=== PATIENT | female | born 1970 | race Caucasian/White ===

== ENCOUNTER 2017-05-20 21:38 | Emergency (ER) | payer SELFPAY ==
--- NOTE | 2017-05-20 22:24 | ERPHSYRPT ---
- History of Present Illness Time Seen by Provider: 05/20/17 22:10 Source: patient Exam Limitations: clinical condition Patient Subjective Stated Complaint: pt states she has had an upper resp infection for approx 1 month and has been coughing up dark sputum. states she also has burning with urination and bumps in genital area. states she has had a new sexual partner within the past few months Triage Nursing Assessment: p;t alet and oriented, asnwers questions approp. pt ambultory with steady gait noted. respirations nonlabored with lungs cta. occasiona cough noted. no urine at this time. abd soft and nontender with bowel sounds present Physician History: PATIENT COMPLAINS OF PRODUCTIVE COUGH FOR 1 MONTH, SINUS PRESSURE WITH DRAINAGE AND URINARY FREQUENCY, URGENCY AND DYSURIA. HAS NO CHANGE IN COUGHING AFTER TAKING ANTIBIOTIC ZITHROMAX AND A SULFA DRUG. DENIES SORETHROAT, FEVER, OR DYSPNEA Timing/Duration: week(s) Severity: moderate Associated Symptoms: cough, other (URINARY SYMPTOMS) Allergies/Adverse Reactions: No Known Drug Allergies Allergy (Verified 05/20/17 22:08) Home Medications: Dextroamphetamine/Amphetamine [Dextroamp-Amphet ER 30 mg Cap] 30 mg PO 01/04/14 [History] Hx Tetanus, Diphtheria Vaccination/Date Given: Yes Hx Influenza Vaccination/Date Given: No Hx Pneumococcal Vaccination/Date Given: No Immunizations Up to Date: Yes - Review of Systems Constitutional: No Fever, No Chills Eyes: No Symptoms Ears, Nose, & Throat: No Symptoms, Sinus Drainage Respiratory: Cough, No Dyspnea Cardiac: No Chest Pain, No Edema, No Syncope Abdominal/Gastrointestinal: No Symptoms, No Abdominal Pain, No Nausea, No Vomiting, No Diarrhea Genitourinary Symptoms: Dysuria, Frequency Musculoskeletal: No Symptoms, No Back Pain, No Neck Pain Skin: No Rash Neurological: No Dizziness, No Focal Weakness, No Sensory Changes Psychological: No Symptoms Endocrine: No Symptoms All Other Systems: Reviewed and Negative - Past Medical History Pertinent Past Medical History: Yes Neurological History: No Pertinent History ENT History: No Pertinent History Cardiac History: High Cholesterol Respiratory History: No Pertinent History Endocrine Medical History: No Pertinent History Musculoskeletal History: No Pertinent History GI Medical History: No Pertinent History History: No Pertinent History Psycho-Social History: Attention Deficit Disorder Female Reproductive Disorders: No Pertinent History Other Medical History: ADHD - Past Surgical History Past Surgical History: Yes Neuro Surgical History: No Pertinent History Cardiac: No Pertinent History Respiratory: No Pertinent History Gastrointestinal: No Pertinent History Genitourinary: No Pertinent History Musculoskeletal: No Pertinent History Female Surgical History: Section, Hysterectomy Other Surgical History: Tummy Tuck - Social History Smoking Status: Current every day smoker How long have you smoked: 15 yrs Exposure to second hand smoke: No Drug Use: none Patient Lives Alone: No - Female History Hx Last Menstrual Period: hyster Hx Now: No - Nursing Vital Signs Nursing Vital Signs: Initial Vital Signs Temperature 98.1 F 05/20/17 21:57 Pulse Rate 87 05/20/17 21:57 Respiratory Rate 18 05/20/17 21:57 Blood Pressure 145/93 05/20/17 21:57 O2 Sat by Pulse Oximetry 98 05/20/17 21:57 Pain Scale Pain Intensity 3 - Physical Exam General Appearance: no apparent distress, alert Eye Exam: PERRL/EOMI, eyes nml inspection Ears, Nose, Throat Exam: normal ENT inspection, TMs normal, pharynx normal, moist mucous membranes, other (MINIMAL PERCUSSION TENDERNESS OVER MAXILLARY SINUSES) Neck Exam: normal inspection, non-tender, supple, full range of motion Respiratory Exam: normal breath sounds, lungs clear, No respiratory distress Cardiovascular Exam: regular rate/rhythm, normal heart sounds, normal peripheral pulses Gastrointestinal/Abdomen Exam: soft, normal bowel sounds, No tenderness, No mass Back Exam: normal inspection, normal range of motion, No CVA tenderness, No vertebral tenderness Extremity Exam: normal inspection, normal range of motion, pelvis stable Neurologic Exam: alert, oriented x 3, cooperative, normal mood/affect, nml cerebellar function, nml station & gait, sensation nml, No motor deficits Skin Exam: normal color, warm, dry, No rash Lymphatic Exam: No adenopathy SpO2 Interpretation: normal SpO2: 98 Oxygen Delivery: Room Air Ordered Tests: Active Orders 24 hr Category Date Time Status CULTURE,URINE Stat Lab 05/20/17 22:42 Received HCG,QUALITATIVE URINE Stat Lab 05/20/17 22:42 Completed UA W/ MICROSCOPIC Stat Lab 05/20/17 22:42 Completed Lab/Rad Data: Laboratory Results 05/20/17 05/20/17 Range/Units 22:42 22:42 Ur Collection Type VOID Urine Color YELLOW (YELLOW) Urine Appearance CLEAR (CLEAR) Urine pH 5.0 (5-6) Ur Specific [place] 1.025 (1.005-1.025) Urine Protein TRACE (Negative) Urine Ketones NEGATIVE (NEGATIVE) Urine Blood TRACE NON-HEM (0-5) Cecilio/ul Urine Nitrite NEGATIVE (NEGATIVE) Urine Bilirubin NEGATIVE (NEGATIVE) Urine Urobilinogen NORMAL (0-1) mg/dL Ur Leukocyte Esterase TRACE (NEGATIVE) Urine Microscopic RBC 2-5 (0-2) /HPF Urine Microscopic WBC 2-5 (0-5) /HPF Ur Epithelial Cells MODERATE (FEW) /HPF Calcium Oxalate Crystal 0-2 (NEGATIVE) /HPF Urine Bacteria FEW (NEGATIVE) /HPF Urine Mucus SLIGHT (NEGATIVE) /HPF Urine Culture Reflexed YES (NO) Urine Glucose NEGATIVE (NEGATIVE) mg/dL Urine HCG, Qual NEGATIVE (Negative) Specimen Received 05/20/17 2245 - Progress Counseled pt/family regarding: lab results, diagnosis, need for follow-up - Departure Time of Disposition: 00:20 Departure Disposition: Home Clinical Impression: ACUTE BRONCHITIS/SINUSITIS Condition: Stable Critical Care Time: No Additional Instructions: FINISH YOUR CURRENT ANTIBIOTIC SULFA DRUG IN 2 DAYS, THEN BEGIN ANTIBIOTIC AUGMENTIN 875MG TWICE DAILY FOR 10 DAYS. FOLLOWUP WITH YOUR PRIMARY CARE PHYSICIAN FOR YOUR SCHEDULED APPOINTMENT. TALK OVER THE COUNTER COUGH SYRUP EVERY 4 HOURS FOR COUGH NEEDED. TYLENOL OR MOTRIN FOR PAIN OR FEVER Prescriptions: Amox Tr/Potass Clav. 875 mg [Augmentin 875-125 Tablet] 875 mg PO BID #20 tablet
[2017-05-20 22:57] LABS: ADD URINE CULTURE? YES (NO); Bacteria FEW /HPF (NEGATIVE); Bilirubin NEGATIVE (NEGATIVE); Blood TRACE NON-HEM Ery/ul (0-5); COMPLETE URINE MICROSCOPIC? YES; Collection Type VOID; Epithelial Cells MODERATE /HPF (FEW); Glucose NEGATIVE (NEGATIVE); Leukocyte Esterase TRACE (NEGATIVE); Mucus SLIGHT /HPF (NEGATIVE)
[2017-05-20 22:58] LABS: CALCIUM OXALATE CRYSTALS 0-2 /HPF (NEGATIVE)
[2017-05-21 00:12] VITALS: BP 133/79; PULSE 92
[2017-05-21 00:17] VITALS: O2SAT 98
== END 2017-05-21 00:26 | disposition home or self-care (01) ==
LOC: ED 21:38
DX: J20.9 Acute bronchitis, unspecified (principal); J01.90 Acute sinusitis, unspecified
CPT/HCPCS: 81000; 84703; 87086; 99283

== ENCOUNTER 2017-05-31 08:23 | Emergency (ER) | payer SELFPAY ==
[2017-05-31] MEDS ORDERED: TORAdol 30 mg Injection IM ONE (08:51)
--- NOTE | 2017-05-31 08:57 | ERPHSYRPT ---
- History of Present Illness Time Seen by Provider: 05/31/17 08:52 Source: patient Exam Limitations: no limitations Patient Subjective Stated Complaint: pt states around 2044 last pm she fell. pt states she injured her left posterior leg. Triage Nursing Assessment: pt pink, warm, dry. bruise noted to left posterior and right posterior leg. bruise noted to right forearm. pt able to get undressed without difficulty and transfer to Er cot without difficulty. no deformities noted. Physician History: patient states that she tripped and left lateral thigh about an hour prior to arrival. Patient states pain is dull ache that is localized. There is no external signs of trauma or injuries. Patient states pain is worse with weight- bearing and movement. Patient did take Motrin 200 mg prior to arrival to the emergency department. Patient denies any numbness, tingling or weakness of distal extremities. Patient denies any other injuries. Occurred: this morning Reason for Fall: tripped Injuries/Pain Location: lower extremity (L lat thigh) Loss of Consciousness: no loss of consciousness Quality: aching Severity of Pain-Max: mild Severity of Pain-Current: mild Modifying Factors: Improves With: immobilization Associated Symptoms (Fall): denies symptoms Allergies/Adverse Reactions: No Known Drug Allergies Allergy (Verified 05/31/17 08:39) Home Medications: Dextroamphetamine/Amphetamine [Dextroamp-Amphet ER 30 mg Cap] 30 mg PO DAILY 12/13 [History] Hx Tetanus, Diphtheria Vaccination/Date Given: Yes (up to date) Hx Influenza Vaccination/Date Given: No Hx Pneumococcal Vaccination/Date Given: No Immunizations Up to Date: Yes - Review of Systems Constitutional: No Fever, No Chills Eyes: No Symptoms Ears, Nose, & Throat: No Symptoms Respiratory: No Cough, No Dyspnea Cardiac: No Chest Pain, No Edema, No Syncope Abdominal/Gastrointestinal: No Abdominal Pain, No Nausea, No Vomiting, No Diarrhea Genitourinary Symptoms: No Dysuria Musculoskeletal: Fall, Other (see HPI with the discharge he is okay. R will), No Back Pain, No Neck Pain Skin: No Rash Neurological: No Dizziness, No Focal Weakness, No Sensory Changes Psychological: No Symptoms Endocrine: No Symptoms All Other Systems: Reviewed and Negative - Past Medical History Pertinent Past Medical History: Yes Neurological History: No Pertinent History ENT History: No Pertinent History Cardiac History: Hypertension Respiratory History: No Pertinent History Endocrine Medical History: No Pertinent History Musculoskeletal History: No Pertinent History GI Medical History: No Pertinent History History: No Pertinent History Psycho-Social History: Attention Deficit Disorder Female Reproductive Disorders: No Pertinent History Other Medical History: ADHD - Past Surgical History Past Surgical History: Yes Neuro Surgical History: No Pertinent History Cardiac: No Pertinent History Respiratory: No Pertinent History Gastrointestinal: No Pertinent History Genitourinary: No Pertinent History Musculoskeletal: No Pertinent History Female Surgical History: Hysterectomy, Section Other Surgical History: Tummy Tuck - Social History Smoking Status: Current every day smoker How long have you smoked: 34 Exposure to second hand smoke: No Drug Use: none Patient Lives Alone: No - Female History Hx Last Menstrual Period: hyster Hx Now: No - Nursing Vital Signs Nursing Vital Signs: Initial Vital Signs Temperature 98.4 F 05/31/17 08:33 Pulse Rate 79 05/31/17 08:33 Respiratory Rate 20 05/31/17 08:33 Blood Pressure 154/84 05/31/17 08:33 O2 Sat by Pulse Oximetry 97 05/31/17 08:33 Pain Scale Pain Intensity 8 - Cambria Coma Score Best Eye Response (Rosanna): (4) open spontaneously Best Verbal Response (Cambria): (5) oriented Best Motor Response (Cambria): (6) obeys commands Rosanna Total: 15 - Physical Exam General Appearance: no apparent distress, alert Head Injury: no evidence of injury Eye Exam: PERRL/EOMI ENT Exam: airway nml Neck Exam: normal inspection, No tenderness Respiratory/Chest Exam: normal breath sounds, No chest tenderness, No respiratory distress Cardiovascular Exam: normal heart sounds, regular rate/rhythm Gastrointestinal Exam: soft, No tenderness, No distention, No guarding, No ecchymosis Back Exam: normal inspection, No vertebral tenderness Extremity Exam: normal inspection, normal range of motion, pelvis stable, other (there is mild tenderness to left lateral thigh, there are no signs of contusion or trauma to area), No deformities Neurologic Exam: alert, oriented x 3, cooperative, sensation nml, No motor deficits Skin Exam: normal color, warm, dry SpO2: 97 Oxygen Delivery: Room Air - Course Nursing assessment & vital signs reviewed: Yes Ordered Tests: Medication Summary Discontinued Medications Generic Name Dose Route Start Last Admin Trade Name Freq PRN Reason Stop Dose Admin Ketorolac Tromethamine 30 mg 05/31/17 08:51 Toradol 30 Mg Injection IM 05/31/17 08:52 STAT ONE - Progress Progress: improved Progress Note: 05/31/17 08:58 patient was given Toradol for discomfort Counseled pt/family regarding: diagnosis - Departure Time of Disposition: 08:58 Departure Disposition: Home Clinical Impression: Contusion of left leg Condition: Stable Critical Care Time: No Referrals: KD PEREZ [Primary Care Provider] - Instructions: Contusion Additional Instructions: ice to any sore areas. May take Motrin 800 mg every 8 hours with food for pain/swelling. return for worse pain, swelling, numbness, tingling or weakness to distal extremities
[2017-05-31] MEDS ORDERED: TORAdol 30 mg Injection ONE (08:58)
[2017-05-31 09:23] VITALS: BP 120/70; PULSE 84; O2SAT 96
== END 2017-05-31 09:20 | disposition home or self-care (01) ==
LOC: ED 08:23
DX: S80.12XA Contusion of left lower leg, initial encounter (principal); W01.0XXA Fall on same level from slipping, tripping and stumbling without subsequent striking against object, initial encounter; I10 Essential (primary) hypertension
CPT/HCPCS: 96372; 99284; J1885

== ENCOUNTER 2017-08-20 00:24 | Emergency (ER) | payer OTHER ==
[2012-04-21 13:43] VITALS: BP 130/85
--- NOTE | 2017-08-20 00:59 | ERPHSYRPT ---
- History of Present Illness Time Seen by Provider: 08/20/17 00:54 Source: patient, family Exam Limitations: no limitations Physician History: pt with increasing ST past few days and hurting to swallow but still able to swallow in ER - no menigismus positive tender bilateral nodes; no rash no fever reported maybe some flu like symptoms a few days ago which resolved - no N /V no cough or sobreath not hoarse Timing/Duration: gradual onset Severity: moderate ENT Location: throat Prearrival Treatment: over the counter meds Modifying Factors: Improves With: nothing Associated Symptoms: swollen glands, sore throat, No cough, No fever, No drooling, No difficulty swallowing, No voice change Allergies/Adverse Reactions: No Known Drug Allergies Allergy (Verified 05/31/17 08:39) Hx Tetanus, Diphtheria Vaccination/Date Given: Yes (up to date) Hx Influenza Vaccination/Date Given: No Hx Pneumococcal Vaccination/Date Given: No - Review of Systems Constitutional: No Fever, No Chills Eyes: No Symptoms Ears, Nose, & Throat: Throat Pain, Painful Swallowing Respiratory: No Cough, No Dyspnea Cardiac: No Chest Pain, No Edema, No Syncope Abdominal/Gastrointestinal: No Abdominal Pain, No Nausea, No Vomiting, No Diarrhea Genitourinary Symptoms: No Dysuria Musculoskeletal: No Back Pain, No Neck Pain Skin: No Rash Neurological: No Dizziness, No Focal Weakness, No Sensory Changes Psychological: No Symptoms Endocrine: No Symptoms All Other Systems: Reviewed and Negative - Past Medical History Pertinent Past Medical History: Yes Neurological History: No Pertinent History ENT History: No Pertinent History Cardiac History: Hypertension Respiratory History: No Pertinent History Endocrine Medical History: No Pertinent History Musculoskeletal History: No Pertinent History GI Medical History: No Pertinent History History: No Pertinent History Psycho-Social History: Attention Deficit Disorder Female Reproductive Disorders: No Pertinent History Other Medical History: ADHD - Past Surgical History Past Surgical History: Yes Neuro Surgical History: No Pertinent History Cardiac: No Pertinent History Respiratory: No Pertinent History Gastrointestinal: No Pertinent History Genitourinary: No Pertinent History Musculoskeletal: No Pertinent History Female Surgical History: Hysterectomy, Section Other Surgical History: Tummy Tuck - Social History Smoking Status: Current every day smoker How long have you smoked: 34 Exposure to second hand smoke: No Drug Use: none Patient Lives Alone: No - Physical Exam General Appearance: no apparent distress, alert Eye Exam: bilateral eye: PERRL, EOMI Ear Exam: bilateral ear: auricle normal, canal normal, TM normal Nasal Exam: normal inspection Throat Exam: moist mucus membranes, tonsillar exudate, No excessive drooling, No voice changes Neck Exam: non-tender, supple, trachea midline, lymphadenopathy (R), lymphadenopathy (L), No meningismus Cardiovascular/Respiratory Exam: normal breath sounds, regular rate/rhythm Abdominal Exam: non-tender, soft Neurologic Exam: alert, oriented x 3, sensation nml, No motor deficits Skin Exam: normal color, warm, dry SpO2 Interpretation: normal SpO2: 99 Oxygen Delivery: Room Air - Course Nursing assessment & vital signs reviewed: Yes - Progress Counseled pt/family regarding: diagnosis, need for follow-up - Departure Time of Disposition: 00:59 Departure Disposition: Home Clinical Impression: Strep pharyngitis Condition: Good Critical Care Time: No Referrals: KD PEREZ [Primary Care Provider] - Instructions: Sore Throat, Adult (DC), Strep Throat (DC), Viral Pharyngitis ( DC) Additional Instructions: followup with your Dr ; return meantime if not improving we are treating for strep due to the drainage we are seeing even without a test being required; return meantime if not able to keep swallowing or any trouble breathing or if feeling too sick Prescriptions: Amoxicillin/Potassium Clav [Augmentin 875 mg (Amox Tr-K Clv 875-125 mg)] 1 each PO BID #20 tablet
[2017-08-20] MEDS ORDERED: Augmentin 875-125 Tablet PO ONE (01:06)
[2017-08-20] MEDS ORDERED: DECADRON 10MG INJ. IM ONE (01:06)
[2017-08-20] MEDS ORDERED: Augmentin 875-125 Tablet ONE (01:09)
[2017-08-20] MEDS ORDERED: DECADRON 10MG INJ. ONE (01:10)
[2017-08-20 01:21] VITALS: BP 148/88; PULSE 78; O2SAT 98
== END 2017-08-20 01:21 | disposition home or self-care (01) ==
LOC: ED 00:24
DX: J02.0 Streptococcal pharyngitis (principal)
CPT/HCPCS: 96372; 99283; 99284; J1100; A9270-GY

== ENCOUNTER 2017-08-22 19:03 | Observation (INO) | payer OTHER ==
--- NOTE | 2017-08-22 19:57 | ERPHSYRPT ---
- History of Present Illness Time Seen by Provider: 08/22/17 19:50 Source: patient Exam Limitations: no limitations Patient Subjective Stated Complaint: severly fatigued, lightheaded, weak, bilateral earache Triage Nursing Assessment: Pt A&O x3, gait stable, lungs clear, pulses normal, skin cold and red, fingers almost purple in color, no pain, temp 97.4 and bp 134 /81. Does not appear to be in any distress. Stated that she was here on Sunday and was diagnosed with strep. Pt was given Augmentin. States now that she is severely weak and can barely get around. Physician History: Pt started c/o gen. weakness, shortness of breath 2 days ago. She was diagnosed with Strep throat and started on Augmentin 3 days ago, she started feeling SOB after started taking Augmentin. She denies chest pain, headaches, vomiting, diarrhea, fever, except nausea. Timing/Duration: day(s) (3) Activities at Onset: none Severity of Dyspnea-Max: moderate Severity of Dyspnea-Current: moderate Possible Cause: no prior episodes Modifying Factors: Improves With: activity Associated Symptoms: denies symptoms Allergies/Adverse Reactions: No Known Drug Allergies Allergy (Verified 08/20/17 01:02) Home Medications: Benazepril HCl 10 mg [Lotensin 10 MG] 1 tablet PO DAILY 08/22/17 [History] Levofloxacin [Levofloxacin 250MG Tablet] 1 tablet PO DAILY 08/22/17 [ History] Triamterene/Hydrochlorothiazid [Triamterene-Hctz 75-50 mg Tab] 1 tablet PO DAILY 08/22/17 [History] Hx Tetanus, Diphtheria Vaccination/Date Given: Yes (up to date) Hx Influenza Vaccination/Date Given: No Hx Pneumococcal Vaccination/Date Given: No - Review of Systems Constitutional: No Symptoms Ears, Nose, & Throat: Ear Pain, Throat Pain Respiratory: Dyspnea, No Cough Abdominal/Gastrointestinal: Nausea All Other Systems: Reviewed and Negative - Past Medical History Pertinent Past Medical History: Yes Neurological History: No Pertinent History ENT History: No Pertinent History Cardiac History: Hypertension Respiratory History: No Pertinent History Endocrine Medical History: No Pertinent History Musculoskeletal History: No Pertinent History GI Medical History: No Pertinent History History: No Pertinent History Psycho-Social History: Attention Deficit Disorder Female Reproductive Disorders: No Pertinent History Other Medical History: ADHD - Past Surgical History Past Surgical History: Yes Neuro Surgical History: No Pertinent History Cardiac: No Pertinent History Respiratory: No Pertinent History Gastrointestinal: No Pertinent History Genitourinary: No Pertinent History Musculoskeletal: No Pertinent History Female Surgical History: Hysterectomy, Section Other Surgical History: Tummy Tuck - Social History Smoking Status: Current every day smoker How long have you smoked: 34 Exposure to second hand smoke: No Drug Use: none Patient Lives Alone: No - Female History Hx Now: No - Nursing Vital Signs Nursing Vital Signs: Initial Vital Signs Temperature 97.4 F 08/22/17 19:19 Pulse Rate 98 H 08/22/17 19:19 Blood Pressure 134/81 08/22/17 19:19 O2 Sat by Pulse Oximetry 99 08/22/17 19:19 Pain Scale Pain Intensity 5 - Physical Exam General Appearance: no apparent distress Eye Exam: PERRL/EOMI, eyes nml inspection Ears, Nose, Throat Exam: hearing grossly normal, normal ENT inspection, normal pharynx Neck Exam: normal inspection, non-tender, supple, full range of motion, No carotid bruit, No JVD Respiratory Exam: normal breath sounds, lungs clear, airway intact, No chest tenderness, No respiratory distress Cardiovascular/Chest Exam: normal heart sounds, regular rate/rhythm, murmur, normal peripheral pulses, No edema, No JVD Abdominal/Gastrointestinal Exam: soft, normal bowel sounds, No tenderness, No distention, No mass, No guarding Extremity Exam: non-tender, normal inspection, No no calf tenderness, No no pedal edema Neurologic Exam: alert, oriented x 3, cooperative, normal mood/affect Skin Exam: normal color, warm, dry, No rash Lymphatic Exam: No adenopathy SpO2 Interpretation: normal SpO2: 99 Oxygen Delivery: Room Air - Course Nursing assessment & vital signs reviewed: Yes EKG Interpreted by Me: RATE, Sinus Rhythm, NORMAL AXIS, Non-specific ST Changes - Radiology Exams Chest X-ray Interpretation: Interpreted by me, Negative Ordered Tests: Active Orders 24 hr Category Date Time Status Manager Of Pharmacy STAT Care 08/22/17 19:50 Active EKG-ER Only STAT Care 08/22/17 19:49 Active CHEST 2 VIEWS (PA AND LAT) Stat Exams 08/22/17 19:50 Taken CBC W DIFF Stat Lab 02/21/18 21:10 Completed CMP Stat Lab 08/22/17 21:10 Completed MAGNESIUM Stat Lab 08/22/17 21:10 Completed Manual Differential NC Stat Lab 08/22/17 21:10 Completed NT PRO BNP Stat Lab 08/22/17 21:10 Completed TROPONIN Q3H Lab 08/22/17 21:10 Completed TROPONIN Q3H Lab 08/22/17 23:00 Ordered TROPONIN Q3H Lab 08/23/17 02:00 Ordered TROPONIN Q3H Lab 08/23/17 05:00 Ordered TROPONIN Q3H Lab 08/23/17 08:00 Ordered Lab/Rad Data: Laboratory Result Diagrams 08/22/17 21:10 08/22/17 21:10 Laboratory Results 08/22/17 08/22/17 08/22/17 Range/Units 21:10 21:10 21:10 WBC 16.5 H (4.0-10.5) K/mm3 RBC 6.74 H* (4.1-5.4) M/mm3 Hgb 19.4 H (12.0-16.0) gm/dl Hct 57.4 H (35-47) % MCV 85.2 (78-100) fl MCH 28.7 (26-32) pg MCHC 33.8 (32-36) g/dl RDW 14.7 H (11.5-14.0) % Plt Count 393 (150-450) K/mm3 MPV 10.7 H (6-9.5) fl Gran % 62.5 (36.0-66.0) % Lymphocytes % 28.1 (24.0-44.0) % Monocytes % 7.4 (0.0-12.0) % Eosinophils % 1.5 (0.00-5.0) % Basophils % 0.5 (0.0-0.4) % Basophils # 0.09 (0-0.4) Sodium 135 L (136-145) mEq/L Potassium 4.5 (3.5-5.1) mEq/L Chloride 99 (98-107) mEq/L Carbon Dioxide 26.4 (21-32) mEq/L Anion Gap 14.1 (5-15) MEQ/L BUN 24 H (9-20) mg/dL Creatinine 0.98 (0.55-1.30) mg/dl Estimated GFR > 60 ML/MIN Glucose 110 (70-110) MG/DL Calcium 9.8 (8.5-10.1) mg/dL Magnesium 2.0 (1.8-2.4) mg/dL Total Bilirubin 0.30 (0.2-1.0) mg/dL AST 31 (15-37) U/L ALT 82 H (12-78) U/L Alkaline Phosphatase 132 H (46-116) U/L Troponin I 0.021 (0.000-0.056) ng/ml NT-Pro-B Natriuret Pep 556 H (0-125) pg/ml Serum Total Protein 8.7 H (6.4-8.2) gm/dL Albumin 3.5 (3.4-5.0) g/dL Influenza Type A Ag (NEGATIVE) Influenza Type B Ag (NEGATIVE) RSV (PCR) (Negative) 08/22/17 Range/Units 20:25 WBC (4.0-10.5) K/mm3 RBC (4.1-5.4) M/mm3 Hgb (12.0-16.0) gm/dl Hct (35-47) % MCV (78-100) fl MCH (26-32) pg MCHC (32-36) g/dl RDW (11.5-14.0) % Plt Count (150-450) K/mm3 MPV (6-9.5) fl Gran % (36.0-66.0) % Lymphocytes % (24.0-44.0) % Monocytes % (0.0-12.0) % Eosinophils % (0.00-5.0) % Basophils % (0.0-0.4) % Basophils # (0-0.4) Sodium (136-145) mEq/L Potassium (3.5-5.1) mEq/L Chloride (98-107) mEq/L Carbon Dioxide (21-32) mEq/L Anion Gap (5-15) MEQ/L BUN (9-20) mg/dL Creatinine (0.55-1.30) mg/dl Estimated GFR ML/MIN Glucose (70-110) MG/DL Calcium (8.5-10.1) mg/dL Magnesium (1.8-2.4) mg/dL Total Bilirubin (0.2-1.0) mg/dL AST (15-37) U/L ALT (12-78) U/L Alkaline Phosphatase (46-116) U/L Troponin I (0.000-0.056) ng/ml NT-Pro-B Natriuret Pep (0-125) pg/ml Serum Total Protein (6.4-8.2) gm/dL Albumin (3.4-5.0) g/dL Influenza Type A Ag NEGATIVE (NEGATIVE) Influenza Type B Ag NEGATIVE (NEGATIVE) RSV (PCR) NEGATIVE (Negative) - Progress Progress: unchanged Air Movement: fair Progress Note: 08/22/17 22:52 Pt has been stable, no fever or distress, no chest pain, or cough, O2 sat: 99% on room air, stable. I called Dr Cool discussed our results and patient's condition with her, she agreed to admit patient for observation, pt and her were informed, they agreed. Discussed with .: Travon Will see patient in: hospital (observation) - Departure Time of Disposition: 22:55 Departure Disposition: Observation Clinical Impression: Erythrocytosis Dyspnea Qualifiers: Dyspnea type: other forms of dyspnea Qualified Code(s): R06.09 - Other forms of dyspnea Condition: Stable Critical Care Time: No Referrals: KD PEREZ [Primary Care Provider] -
[2017-08-22 21:08] LABS: INFLUENZA A NEGATIVE (NEGATIVE); INFLUENZA B NEGATIVE (NEGATIVE); RESPIRATORY SYNCTIAL VIRUS NEGATIVE (Negative)
[2017-08-22 21:25] LABS: BASOPHIL % 0.5 % (0.0-0.4); Basophil (Absolute #) 0.09 (0-0.4); Eosinophil % 1.5 % (0.00-5.0); Eosinophil (Absolute #) 0.24 (0-0.5); Granulocyte Absolute (ANC) 10.35 (1.4-6.9); Granulocytes % 62.5 % (36.0-66.0); Hematocrit 57.4 % (35-47); Hemoglobin 19.4 gm/dl (12.0-16.0); Lymphocyte (Absolute #) 4.64 (1.0-4.6); Lymphocytes % 28.1 % (24.0-44.0); Mean Cell Volume 85.2 fl (78-100); Mean Corpuscular Hgb Concent. 33.8 g/dl (32-36); Mean Platelet Volume 10.7 fl (6-9.5); Monocyte (Absolute #) 1.22 (0.0-1.3); Monocytes % 7.4 % (0.0-12.0); Platelet Count 393 K/mm3 (150-450); Red Cell Distribution Width 14.7 % (11.5-14.0); White Blood Count 16.5 K/mm3 (4.0-10.5)
[2017-08-22 21:47] LABS: Mean Corpuscular Hemoglobin 28.7 pg (26-32); Red Blood Count 6.74 M/mm3 (4.1-5.4)
[2017-08-22 21:57] LABS: ALBUMIN 3.5 g/dL (3.4-5.0); ALKALINE PHOSPHATASE 132 U/L (46-116); ANION GAP 14.1 MEQ/L (5-15); BLOOD UREA NITROGEN 24 mg/dL (9-20); CHLORIDE 99 mEq/L (98-107); Calcium 9.8 mg/dL (8.5-10.1); Carbon Dioxide 26.4 mEq/L (21-32); Creatinine 1 0.98 mg/dl (0.55-1.30); EST GLOMERULAR FILTRATION RATE > 60 ML/MIN; Glucose 110 MG/DL (70-110); NT PRO BNP 556 pg/ml (0-125); Potassium 4.5 mEq/L (3.5-5.1); SGOT/AST 31 U/L (15-37); SGPT/ALT 82 U/L (12-78); SODIUM 135 mEq/L (136-145); Total Protein 8.7 gm/dL (6.4-8.2)
[2017-08-22] MEDS ORDERED: DUONEB 0.5-3 MG/3 ml Neb IH PRN (22:56)
[2017-08-23 01:45] LABS: BAND 1 % (0.0-2.0); Basophil 2 % (0.0-1.0); Lymphocytes 24 % (24-44); Monocyte 8 % (0.0-12.0); Neutrophils 65 % (36.0-66.0); Platelet Estimate NORMAL (NORMAL); Total Cells Counted 100
[2017-08-23 01:46] LABS: ANISOCYTOSIS 1+; Poikilocytosis 1+
[2017-08-23 04:21] VITALS: PULSE 93
--- NOTE | 2017-08-23 08:38 | PCM.DCORD ---
- Discharge Discharge Date: 08/23/17 Prescriptions: Continue Triamterene/Hydrochlorothiazid [Triamterene-Hctz 75-50 mg Tab] 1 tablet PO DAILY Benazepril HCl 10 mg [Lotensin 10 MG] 1 tablet PO DAILY Discontinued Amoxicillin/Potassium Clav [Augmentin 875 mg (Amox Tr-K Clv 875-125 mg)] 1 each PO BID #20 tablet Levofloxacin [Levofloxacin 250MG Tablet] 1 tablet PO DAILY Additional Instructions: Follow up with Dr Young in 1 week increase fluids at home Follow up with: KD YOUNG [Primary Care Provider] - 1 Week
--- NOTE | 2017-08-23 08:46 | XRAY ---
Indication: Dyspnea. Comparison: March 16, 2012. PA/lateral chest again demonstrates normal heart and lungs with a few incidental calcified granulomas. Bony thorax intact with stable bilateral shoulder degenerative changes. No new/acute findings.
[2017-08-23 08:49] VITALS: BP 131/89; O2SAT 98
[2017-08-23 09:13] LABS: Granulocyte Absolute (ANC) 8.63 (1.4-6.9); Hematocrit 53.8 % (35-47); Hemoglobin 18.1 gm/dl (12.0-16.0); Mean Cell Volume 84.7 fl (78-100); Mean Corpuscular Hemoglobin 28.5 pg (26-32); Mean Corpuscular Hgb Concent. 33.6 g/dl (32-36); Mean Platelet Volume 10.1 fl (6-9.5); Platelet Count 468 K/mm3 (150-450); Red Blood Count 6.35 M/mm3 (4.1-5.4); Red Cell Distribution Width 13.9 % (11.5-14.0); White Blood Count 16.7 K/mm3 (4.0-10.5)
[2017-08-23 10:44] LABS: Eosinophil 3 % (0.00-3.0); Lymphocytes 47 % (24-44); Monocyte 7 % (0.0-12.0); Neutrophils 43 % (36.0-66.0); Total Cells Counted 100
[2017-08-23 10:45] LABS: Platelet Estimate NORMAL (NORMAL); Toxic Granulation 1+
--- NOTE | 2017-08-28 11:14 | SSS ---
DISCHARGE DIAGNOSES: 1) ABDOMINAL PAIN DUE TO AUGMENTIN. 2) POLYCYTHEMIA. HISTORY: The patient is a 46 year-old white female who was apparently seen in the emergency room briefly on 08/20/2017 with complaints of sore throat. The diagnosis was made of Strep throat. The patient was placed on Augmentin. No labs were done at that time, specifically no throat culture. The patient now complains of abdominal pain which we feel is likely secondary to the Augmentin. She was noted however to have an elevation in her red blood cell count of 6.64 with hemoglobin 19.4 and hematocrit 57.4. Her white blood cell count was also elevated at 16,500 with 1 band and 65 polys. The patient was also noted to have BUN elevated at 24, creatinine was 0.98. It was noted that her SGPT was slightly elevated at 82. Alkaline phosphatase was also at 132. ProBNP was 556. Influenza A, B and respiratory syncytial virus were all negative. The patient is also noted to be a smoker. PHYSICAL EXAMINATION: Currently reveals a well nourished, well developed 46 white female in no distress at the present time. Her vital signs showed a temperature 97.4F, pulse 98, respiratory rate 16, blood pressure 134/81. O2 saturations 99%. HEENT: Normocephalic, atraumatic. Pupils equal round reactive to light. Extraocular movements intact. Oropharynx is slightly dry. NECK: Supple without lymphadenopathy, thyromegaly or JVD. CHEST: Clear to auscultation with good air movement bilaterally. HEART: Regular rate and rhythm without murmurs, rubs or gallops. ABDOMEN: Soft, nontender, nondistended without hepatosplenomegaly or palpable masses. EXTREMITIES: Without clubbing, cyanosis or edema. NEUROLOGIC: The patient is alert and oriented x3. No focal deficits were noted. HOSPITAL COURSE: A patient with possible polycythemia vera. We have no labs for comparison although the patient is also a smoker and she is likely somewhat dehydrated. We will recheck her hemoglobin and allow her to go home presently as she is having no problems whatsoever otherwise at the present time. She will have follow up in the office in a week at which time we will recheck the blood count once again. We have asked her to stop smoking and increase her fluid intake. We will monitor her for possibility of polycythemia vera.
== END 2017-08-23 10:15 | disposition home or self-care (01) ==
LOC: ED 19:03 → ICU 08-23 00:12
PROVIDERS: ADMIT Internal Medicine; ATTEND Family Medicine
DX: R10.9 Unspecified abdominal pain (principal); T45.1X5A Adverse effect of antineoplastic and immunosuppressive drugs, initial encounter; D75.1 Secondary polycythemia; F17.200 Nicotine dependence, unspecified, uncomplicated; Z79.899 Other long term (current) drug therapy
CPT/HCPCS: 36415; 71046; 80053; 83735; 83880; 84484; 85025; 87631; 93005; 93041; 93268; 99285; G0378

== ENCOUNTER 2018-03-10 18:51 | Emergency (ER) | payer OTHER ==
[2018-03-10] MEDS ORDERED: MORPHINE SULFATE 2 MG INJ IV ONE (19:21)
[2018-03-10] MEDS ORDERED: Nitrostat 0.4 MG (ED) SL ONE ×2 (19:21→19:45)
[2018-03-10] MEDS ORDERED: BABY ASPIRIN 81 MG CHEW PO ONE (19:21)
--- NOTE | 2018-03-10 19:21 | ERPHSYRPT ---
- History of Present Illness Time Seen by Provider: 03/10/18 19:10 Historian: patient Exam Limitations: no limitations Patient Subjective Stated Complaint: Pt states "I have been having high blood pressure and chest pain. The chest pain started a couple hours ago." Triage Nursing Assessment: Pt alert and oriented X 3, skin pwd. PT ambulates with an upright steady gait, able to speak in clear full sentences. PT in no apparent respiratory distress, pt slightly anxious. Physician History: 47 y/o white female with h/o htn and recurrent cp presents with cp. cp began 2 hours ago. pt has no cardiac hx. pt is a smoker. pt is incarcerated in a prison and was not under any trauma or new stressors today Timing/Duration: hour(s) (2) Activities at Onset: none Location: substernal, central Chest Pain Radiation: no radiation Severity of Pain-Max: moderate Severity of Pain-Current: mild Modifying Factors: Improves With: nothing Associated Symptoms: No nausea, No vomiting, No palpitations, No abdominal pain , No shortness of breath, No cough, No hurts to breathe Prior Chest Pain/Cardiac Workup: no prior chest pain, no prior cardiac workup Nitro Today/Relief: no nitro taken today Aspirin Treatment Today: no aspirin today Allergies/Adverse Reactions: No Known Drug Allergies Allergy (Verified 08/20/17 01:02) Home Medications: No Reportable Medications [No Reported Medications] 03/10/18 [History] Hx Tetanus, Diphtheria Vaccination/Date Given: Yes Hx Influenza Vaccination/Date Given: No Hx Pneumococcal Vaccination/Date Given: No Immunizations Up to Date: Yes - Review of Systems Constitutional: No Symptoms, No Fever, No Chills Eyes: No Symptoms, No Discharge, No Eye Pain Ears, Nose, & Throat: No Symptoms, No Ear Pain, No Ear Discharge Respiratory: No Symptoms, No Cough, No Dyspnea, No Stridor, No Wheezing Cardiac: Chest Pain, No Palpitations, No Syncope Abdominal/Gastrointestinal: No Symptoms, No Abdominal Pain, No Nausea, No Vomiting, No Diarrhea Genitourinary Symptoms: No Symptoms, No Dysuria, No Hematuria Musculoskeletal: No Symptoms, No Back Pain, No Fall, No Injury Skin: No Symptoms Neurological: No Symptoms Psychological: No Symptoms Endocrine: No Symptoms Hematologic/Lymphatic: No Symptoms Immunological/Allergic: No Symptoms All Other Systems: Reviewed and Negative - Past Medical History Pertinent Past Medical History: Yes Neurological History: No Pertinent History ENT History: No Pertinent History Cardiac History: Hypertension Respiratory History: No Pertinent History Endocrine Medical History: No Pertinent History Musculoskeletal History: No Pertinent History GI Medical History: No Pertinent History History: No Pertinent History Psycho-Social History: No Pertinent History Female Reproductive Disorders: No Pertinent History Other Medical History: ADHD - Past Surgical History Past Surgical History: Yes Neuro Surgical History: No Pertinent History Cardiac: No Pertinent History Respiratory: No Pertinent History Gastrointestinal: No Pertinent History Genitourinary: No Pertinent History Musculoskeletal: No Pertinent History Female Surgical History: Hysterectomy, Section Other Surgical History: Tummy Tuck - Social History Smoking Status: Current every day smoker How long have you smoked: 35 years Exposure to second hand smoke: Yes Drug Use: methamphetamines Patient Lives Alone: No - Female History Hx Last Menstrual Period: complete hysterectomy Hx Now: No - Nursing Vital Signs Nursing Vital Signs: Initial Vital Signs Temperature 98.3 F 03/10/18 18:54 Pulse Rate 90 03/10/18 18:54 Respiratory Rate 18 03/10/18 18:54 Blood Pressure 142/102 03/10/18 18:54 O2 Sat by Pulse Oximetry 100 03/10/18 18:54 Pain Scale Pain Intensity 4 - Physical Exam General Appearance: mild distress, alert, anxiety Eye Exam: PERRL/EOMI, eyes nml inspection Ears, Nose, Throat Exam: normal ENT inspection, TMs normal, moist mucous membranes Neck Exam: normal inspection, non-tender, supple, full range of motion Respiratory Exam: normal breath sounds, chest tenderness, lungs clear, airway intact, No respiratory distress, No accessory muscle use, No rhonchi, No wheezing, No stridor Cardiovascular Exam: regular rate/rhythm, normal heart sounds, normal peripheral pulses Gastrointestinal/Abdomen Exam: soft, normal bowel sounds, No tenderness, No guarding, No rebound Pelvic Exam: not done Rectal Exam: not done Back Exam: normal inspection, normal range of motion, No CVA tenderness, No vertebral tenderness Extremity Exam: normal inspection, normal range of motion, pelvis stable Neurologic Exam: alert, oriented x 3, 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, 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 Skin Exam: normal color, warm, dry Lymphatic Exam: No adenopathy SpO2 Interpretation: normal SpO2: 100 Oxygen Delivery: Room Air - Course Nursing assessment & vital signs reviewed: Yes EKG Interpreted by Me: RATE (82), Sinus Rhythm, NORMAL AXIS, Non-specific ST Changes, Other (no change when compared to ekg dated 08/22/17) Ordered Tests: Active Orders 24 hr Category Date Time Status Lean Specialist STAT Care 03/10/18 19:22 Active EKG-ER Only STAT Care 03/10/18 19:21 Active IV Insertion STAT Care 03/10/18 19:21 Active CHEST 1 VIEW (PORTABLE) Stat Exams 03/10/18 19:22 Taken CHEST WITH CONTRAST [CT] Stat Exams 03/10/18 22:28 Taken CBC W DIFF Stat Lab 03/10/18 19:50 Completed CMP Stat Lab 03/10/18 19:50 Completed D-DIMER QUANTITATION Stat Lab 03/10/18 19:50 Completed PROTIME WITH INR Stat Lab 03/10/18 19:50 Completed TROPONIN Q3H Lab 03/10/18 19:58 Completed TROPONIN Q3H Lab 03/10/18 23:53 Received Medication Summary Discontinued Medications Generic Name Dose Route Start Last Admin Trade Name Evon PRN Reason Stop Dose Admin Aspirin 324 mg 03/10/18 19:21 03/10/18 19:47 Baby Aspirin 81 Mg Chew PO 03/10/18 19:22 324 mg STAT ONE Administration Aspirin Confirm 03/10/18 19:45 Baby Aspirin 81 Mg Chew Administered 03/10/18 19:46 Dose 324 mg .ROUTE .STK-MED ONE Morphine Sulfate 2 mg 03/10/18 19:21 03/10/18 19:48 Morphine Sulfate 2 Mg Inj IV 03/10/18 19:22 Not Given STAT ONE Nitroglycerin 0.4 mg 03/10/18 19:21 03/10/18 19:47 Nitrostat 0.4 Mg (Ed) SL 03/10/18 19:22 0.4 mg STAT ONE Administration Nitroglycerin Confirm 03/10/18 19:45 Nitrostat 0.4 Mg (Ed) Administered 03/10/18 19:46 Dose 0.4 mg SL .STK-MED ONE Lab/Rad Data: Laboratory Result Diagrams 03/10/18 19:50 03/10/18 19:50 Laboratory Results 03/10/18 03/10/18 03/10/18 Range/Units 19:58 19:50 19:50 WBC (4.0-10.5) K/mm3 RBC (4.1-5.4) M/mm3 Hgb (12.0-16.0) gm/dl Hct (35-47) % MCV (78-100) fl MCH (26-32) pg MCHC (32-36) g/dl RDW (11.5-14.0) % Plt Count (150-450) K/mm3 MPV (6-9.5) fl Gran % (36.0-66.0) % Eos # (Auto) (0-0.5) Absolute Lymphs (auto) (1.0-4.6) Absolute Monos (auto) (0.0-1.3) Lymphocytes % (24.0-44.0) % Monocytes % (0.0-12.0) % Eosinophils % (0.00-5.0) % Basophils % (0.0-0.4) % Absolute Granulocytes (1.4-6.9) Basophils # (0-0.4) PT 11.3 (9.95-12.35) SECONDS INR 0.97 (0.8-3.0) D-Dimer 634 H* (215-500) ng/mL Sodium 139 (137-145) mmol/L Potassium 4.3 (3.5-5.1) mmol/L Chloride 107 (98-107) mmol/L Carbon Dioxide 23 (22-30) mmol/L Anion Gap 13.5 (5-15) MEQ/L BUN 11 (7-17) mg/dL Creatinine 0.53 (0.52-1.04) mg/dL Estimated GFR > 60.0 ML/MIN Glucose 110 H (74-106) mg/dL Calcium 9.1 (8.4-10.2) mg/dL Total Bilirubin 0.30 (0.2-1.3) mg/dL AST 39 H (14-36) U/L ALT 66 H (0-35) U/L Alkaline Phosphatase 102 (38-126) U/L Troponin I < 0.012 (0.000-0.034) ng/mL Serum Total Protein 7.4 (6.3-8.2) g/dL Albumin 4.0 (3.5-5.0) g/dL 03/10/18 Range/Units 19:50 WBC 10.7 H (4.0-10.5) K/mm3 RBC 5.41 H (4.1-5.4) M/mm3 Hgb 15.8 (12.0-16.0) gm/dl Hct 46.2 (35-47) % MCV 85.4 (78-100) fl MCH 29.2 (26-32) pg MCHC 34.2 (32-36) g/dl RDW 13.7 (11.5-14.0) % Plt Count 325 (150-450) K/mm3 MPV 10.1 H (6-9.5) fl Gran % 60.5 (36.0-66.0) % Eos # (Auto) 0.15 (0-0.5) Absolute Lymphs (auto) 3.15 (1.0-4.6) Absolute Monos (auto) 0.88 (0.0-1.3) Lymphocytes % 29.3 (24.0-44.0) % Monocytes % 8.2 (0.0-12.0) % Eosinophils % 1.4 (0.00-5.0) % Basophils % 0.6 (0.0-0.4) % Absolute Granulocytes 6.50 (1.4-6.9) Basophils # 0.06 (0-0.4) PT (9.95-12.35) SECONDS INR (0.8-3.0) D-Dimer (215-500) ng/mL Sodium (137-145) mmol/L Potassium (3.5-5.1) mmol/L Chloride (98-107) mmol/L Carbon Dioxide (22-30) mmol/L Anion Gap (5-15) MEQ/L BUN (7-17) mg/dL Creatinine (0.52-1.04) mg/dL Estimated GFR ML/MIN Glucose (74-106) mg/dL Calcium (8.4-10.2) mg/dL Total Bilirubin (0.2-1.3) mg/dL AST (14-36) U/L ALT (0-35) U/L Alkaline Phosphatase (38-126) U/L Troponin I (0.000-0.034) ng/mL Serum Total Protein (6.3-8.2) g/dL Albumin (3.5-5.0) g/dL cta chest-no evidence of pulm emboli to the level of lobar pulm arteries. poor contrast bolus timing. - Progress Progress: improved Air Movement: good Progress Note: 03/11/18 00:06 pt states her cp has sig improved. pt denies soa. vss. room air o2 sats 100% Blood Culture(s) Obtained: No Antibiotics given: No Counseled pt/family regarding: lab results, diagnosis, need for follow-up, rad results - Departure Time of Disposition: 00:08 Departure Disposition: Correction/Detention Clinical Impression: Chest pain, Hypertension Condition: Good Critical Care Time: No Referrals: KD PEREZ [Primary Care Provider] - Additional Instructions: follow up with primary doctor for further management of your chest pain and high blood pressure.
[2018-03-10] MEDS ORDERED: BABY ASPIRIN 81 MG CHEW ONE (19:45)
[2018-03-10 20:19] LABS: BASOPHIL % 0.6 % (0.0-0.4); Basophil (Absolute #) 0.06 (0-0.4); Eosinophil % 1.4 % (0.00-5.0); Eosinophil (Absolute #) 0.15 (0-0.5); Granulocytes % 60.5 % (36.0-66.0); Hematocrit 46.2 % (35-47); Hemoglobin 15.8 gm/dl (12.0-16.0); Lymphocyte (Absolute #) 3.15 (1.0-4.6); Lymphocytes % 29.3 % (24.0-44.0); Mean Cell Volume 85.4 fl (78-100); Mean Corpuscular Hemoglobin 29.2 pg (26-32); Mean Corpuscular Hgb Concent. 34.2 g/dl (32-36); Mean Platelet Volume 10.1 fl (6-9.5); Monocyte (Absolute #) 0.88 (0.0-1.3); Monocytes % 8.2 % (0.0-12.0); Platelet Count 325 K/mm3 (150-450); Red Blood Count 5.41 M/mm3 (4.1-5.4); Red Cell Distribution Width 13.7 % (11.5-14.0); White Blood Count 10.7 K/mm3 (4.0-10.5)
[2018-03-10 20:23] LABS: ALKALINE PHOSPHATASE 102 U/L (38-126); ANION GAP 13.5 MEQ/L (5-15); BLOOD UREA NITROGEN 11 mg/dL (7-17); CHLORIDE 107 mmol/L (98-107); Calcium 9.1 mg/dL (8.4-10.2); Carbon Dioxide 23 mmol/L (22-30); Creatinine 1 0.53 mg/dL (0.52-1.04); Glucose 110 mg/dL (74-106); Potassium 4.3 mmol/L (3.5-5.1); SGOT/AST 39 U/L (14-36); SGPT/ALT 66 U/L (0-35); SODIUM 139 mmol/L (137-145); Total Protein 7.4 g/dL (6.3-8.2)
[2018-03-10 20:29] LABS: INR 0.97 (0.8-3.0)
[2018-03-10 22:28] VITALS: O2SAT 100
[2018-03-11 00:23] VITALS: BP 132/95; PULSE 102
[2018-03-11] MEDS ORDERED: TYLENOL 325 MG PO PRN (00:26)
[2018-03-11] MEDS ORDERED: TYLENOL 325 MG ONE (00:32)
--- NOTE | 2018-03-11 08:54 | XRAY ---
Indication: Chest pain and short of breath. Comparison: August 22, 2017. Portable chest again demonstrates normal heart, lungs, and bony thorax with incidental left upper lung calcified granuloma.
--- NOTE | 2018-03-11 08:54 | XRAY ---
Indication: Short of breath, chest pain, and elevated d-dimer. Multiple contiguous axial images obtained through the chest using 80 cc Isovue 370 contrast and PE protocol. Comparison: None There is satisfactory opacification of the pulmonary arteries to include the lobar and segmental branches. However mild respiration artifact limits evaluation of the distal lobar and segmental branches. No gross filling defect or pulmonary embolus. Heart is not enlarged. Aorta is normal in course and caliber. No pathologic mediastinal/hilar lymphadenopathy. Small hiatal hernia. Examination of the lung parenchyma demonstrates minimal bilateral dependent atelectasis and left upper lobe calcified granuloma. No suspicious pulmonary mass, infiltrate, or effusion. Bony thorax intact with minimal degenerative changes throughout the spine. Limited upper abdomen including adrenal glands unremarkable. Impression: 1. Pulmonary embolus evaluation limited by respiration artifact. No obvious pulmonary embolus. 2. Pulmonary calcified granuloma. No acute cardiopulmonary abnormalities. 3. Incidental hiatal hernia. Comment: Preliminary interpretation was made by [facility]. No critical discrepancy. CT DI 21.70
== END 2018-03-11 00:36 | disposition home or self-care (01) ==
LOC: EEVIPCON 18:51 → ED 18:51
DX: R07.9 Chest pain, unspecified (principal); I10 Essential (primary) hypertension
CPT/HCPCS: 36000; 36415; 71045; 71260; 76942; 80053; 84484; 85025; 85379; 85610; 93005; 93041; 99284; A9270-GY

== ENCOUNTER 2018-10-14 17:41 | Emergency (ER) | payer OTHER ==
--- NOTE | 2018-10-14 17:59 | ERPHSYRPT ---
- History of Present Illness Time Seen by Provider: 10/14/18 17:59 Source: patient Exam Limitations: no limitations Physician History: 48 y/o white female with a remote h/o genital herpes, presents with new outbreak. pt states same lesions. tender. pt also feels generally achy. pt also notices a different rash between pts breasts for one day. there is no pain but itches. pt has an appt with pcp tomorrow. Timing/Duration: day(s) (2) Quality: burning, itchy, painful Severity: mild Location: genitalia, other (chest between breasts) Possible Causes: other (herpes break out) Associated Symptoms: rash Allergies/Adverse Reactions: No Known Drug Allergies Allergy (Verified 10/14/18 18:02) Home Medications: Triamterene/Hydrochlorothiazid [Triamterene-Hctz 75-50 mg Tab] 1 each PO DAILY 10/14/18 [History] Hx Tetanus, Diphtheria Vaccination/Date Given: Yes Hx Influenza Vaccination/Date Given: No Hx Pneumococcal Vaccination/Date Given: No - Review of Systems Constitutional: No Symptoms Eyes: No Symptoms Ears, Nose, & Throat: No Symptoms Respiratory: No Symptoms Cardiac: No Symptoms Abdominal/Gastrointestinal: No Symptoms Genitourinary Symptoms: No Symptoms, Other (painful genital herpetic lesions) Musculoskeletal: No Symptoms Skin: Other (itchy rash between breasts) Neurological: No Symptoms Psychological: No Symptoms Endocrine: No Symptoms Hematologic/Lymphatic: No Symptoms Immunological/Allergic: No Symptoms All Other Systems: Reviewed and Negative - Past Medical History Pertinent Past Medical History: Yes Neurological History: No Pertinent History ENT History: No Pertinent History Cardiac History: Hypertension Respiratory History: No Pertinent History Endocrine Medical History: No Pertinent History Musculoskeletal History: No Pertinent History GI Medical History: No Pertinent History History: No Pertinent History Psycho-Social History: No Pertinent History Female Reproductive Disorders: No Pertinent History Other Medical History: ADHD - Past Surgical History Past Surgical History: Yes Neuro Surgical History: No Pertinent History Cardiac: No Pertinent History Respiratory: No Pertinent History Gastrointestinal: No Pertinent History Genitourinary: No Pertinent History Musculoskeletal: No Pertinent History Female Surgical History: Hysterectomy, Section Other Surgical History: Tummy Tuck - Social History Smoking Status: Current every day smoker How long have you smoked: 35 years Exposure to second hand smoke: Yes Drug Use: methamphetamines Patient Lives Alone: No - Nursing Vital Signs Nursing Vital Signs: Initial Vital Signs Temperature 98.5 F 10/14/18 17:51 Pulse Rate 81 10/14/18 17:51 Blood Pressure 155/86 10/14/18 17:51 O2 Sat by Pulse Oximetry 97 10/14/18 17:51 Pain Scale Pain Intensity 7 - Physical Exam General Appearance: mild distress, alert, anxiety Eye Exam: PERRL/EOMI Ears, Nose, Throat Exam: normal ENT inspection, moist mucous membranes Neck Exam: normal inspection, non-tender, supple, full range of motion Respiratory Exam: normal breath sounds, lungs clear, airway intact, No chest tenderness, No respiratory distress Gastrointestinal/Abdomen Exam: soft, No tenderness Pelvic Exam: other (external vaginal/labial area with multiple herpetic lesions) Rectal Exam: not done Back Exam: normal inspection, normal range of motion, No CVA tenderness, No vertebral tenderness Extremity Exam: normal inspection, normal range of motion, pelvis stable Neurologic Exam: alert, oriented x 3, 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 apply over the counter hydrocortisone, zinc oxide and topical antifungal as discussed. keep your skin hydrated well. keep your appointment with your primary doctor tomorrow. Prescriptions: Acyclovir 200 mg Cap [Zovirax 200 mg ] 400 mg PO TID #60 capsule
[2018-10-14 18:37] VITALS: O2SAT 96
[2018-10-14 19:16] VITALS: BP 136/87; PULSE 63
== END 2018-10-14 19:14 | disposition home or self-care (01) ==
LOC: ED 17:41
DX: A60.00 Herpesviral infection of urogenital system, unspecified (principal); L30.9 Dermatitis, unspecified
CPT/HCPCS: 99283

== ENCOUNTER 2018-10-15 11:12 | Emergency (ER) | payer OTHER ==
--- NOTE | 2018-10-15 11:26 | ERPHSYRPT ---
- History of Present Illness Time Seen by Provider: 10/15/18 11:26 Source: patient Exam Limitations: no limitations Physician History: 48 y/o white female returns to ED after being seen last pm for 2 types of rashes. one that itches between breasts and the other genital herpes. pt took the acyclovir which helped her genital herpes rash. however, pt did not follow directions on the tx plan for rash between breasts. she used only nystatin powder. she did not follow up with pcp as she stated last pm. her rash, not genital herpes, has become more generalized. she now thinks the dermatitis rash is due to a new laundry detergent. no soa or wheezing. she is anxious Timing/Duration: day(s) Quality: itchy Severity: moderate Location: generalized Possible Causes: other (laundry detergent) Associated Symptoms: denies symptoms Allergies/Adverse Reactions: No Known Drug Allergies Allergy (Verified 10/15/18 11:36) Home Medications: Triamterene/Hydrochlorothiazid [Triamterene-Hctz 75-50 mg Tab] 1 each PO DAILY 10/14/18 [History] Hx Tetanus, Diphtheria Vaccination/Date Given: Yes Hx Influenza Vaccination/Date Given: No Hx Pneumococcal Vaccination/Date Given: No - Review of Systems Constitutional: No Symptoms Eyes: No Symptoms Ears, Nose, & Throat: No Symptoms Respiratory: No Symptoms Cardiac: No Symptoms Abdominal/Gastrointestinal: No Symptoms Genitourinary Symptoms: No Symptoms Musculoskeletal: No Symptoms Skin: Rash (generalized) Neurological: No Symptoms Psychological: No Symptoms Endocrine: No Symptoms Hematologic/Lymphatic: No Symptoms Immunological/Allergic: No Symptoms All Other Systems: Reviewed and Negative - Past Medical History Pertinent Past Medical History: Yes Neurological History: No Pertinent History ENT History: No Pertinent History Cardiac History: Hypertension Respiratory History: No Pertinent History Endocrine Medical History: No Pertinent History Musculoskeletal History: No Pertinent History GI Medical History: No Pertinent History History: No Pertinent History Psycho-Social History: No Pertinent History Female Reproductive Disorders: No Pertinent History Other Medical History: ADHD - Past Surgical History Past Surgical History: Yes Neuro Surgical History: No Pertinent History Cardiac: No Pertinent History Respiratory: No Pertinent History Gastrointestinal: No Pertinent History Genitourinary: No Pertinent History Musculoskeletal: No Pertinent History Female Surgical History: Hysterectomy, Section Other Surgical History: Tummy Tuck - Social History Smoking Status: Current every day smoker How long have you smoked: 35 years Exposure to second hand smoke: Yes Drug Use: methamphetamines Patient Lives Alone: No - Nursing Vital Signs Nursing Vital Signs: Initial Vital Signs Temperature 98.0 F 10/15/18 11:29 Pulse Rate 94 H 10/15/18 11:29 Respiratory Rate 18 10/15/18 11:29 Blood Pressure 111/65 10/15/18 11:29 O2 Sat by Pulse Oximetry 96 10/15/18 11:29 Pain Scale Pain Intensity 8 - Physical Exam General Appearance: no apparent distress, alert, anxiety Eye Exam: PERRL/EOMI Ears, Nose, Throat Exam: normal ENT inspection, moist mucous membranes Neck Exam: normal inspection, non-tender, supple, full range of motion Respiratory Exam: normal breath sounds, lungs clear, airway intact, No chest tenderness, No respiratory distress, No accessory muscle use, No rhonchi, No wheezing, No stridor Cardiovascular Exam: regular rate/rhythm, normal heart sounds, normal peripheral pulses Gastrointestinal/Abdomen Exam: soft, normal bowel sounds, No tenderness Pelvic Exam: not done Rectal Exam: not done Back Exam: normal inspection, normal range of motion, No CVA tenderness, No vertebral tenderness Extremity Exam: normal inspection, normal range of motion, pelvis stable Neurologic Exam: alert, oriented x 3, 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 add benadryl orally as discussed. follow up with primary doctor for persistent symptoms. continue acyclovir as prescribed. Prescriptions: Prednisone 10 mg [Deltasone 10 mg] 10 mg PO TID #12 tablet Ranitidine HCl [Zantac] 150 mg PO BID #10 tablet
[2018-10-15] MEDS ORDERED: solu-MEDROL 125 MG IM ONE (12:07)
[2018-10-15] MEDS ORDERED: Pepcid 20 MG PO ONE (12:08)
[2018-10-15] MEDS ORDERED: BENADRYL 25 MG CAPSULE PO ONE (12:08)
[2018-10-15] MEDS ORDERED: solu-MEDROL 125 MG ONE (12:13)
[2018-10-15] MEDS ORDERED: BENADRYL 25 MG CAPSULE ONE (12:13)
[2018-10-15] MEDS ORDERED: Pepcid 20 MG ONE (12:13)
[2018-10-15 12:20] VITALS: BP 121/68; PULSE 87; O2SAT 98
== END 2018-10-15 12:26 | disposition home or self-care (01) ==
LOC: ED 11:12
DX: L25.9 Unspecified contact dermatitis, unspecified cause (principal); I10 Essential (primary) hypertension
CPT/HCPCS: 96372; 99284; J2930; A9270-GY

== ENCOUNTER 2019-04-22 20:15 | Emergency (ER) | payer OTHER ==
--- NOTE | 2019-04-22 20:36 | ERPHSYRPT ---
- History of Present Illness Time Seen by Provider: 04/22/19 20:36 Source: patient, family Exam Limitations: no limitations Patient Subjective Stated Complaint: pt states she has had a frequent cough at home and has chest congestion. states she feels like her chest is full of mucous ans she cant get it out. Triage Nursing Assessment: pt alert and oreinted, answers questions approp. pt ambulatory with steady gait noted. respirations nonlabored with exp wheezing noted throughout. frequent moist cough noted , skin warm and dry. Physician History: 48 y/o white female presents with cough and chest congestion for one week. denies fever, denies n/v. pt had a single episode diarrhea yesterday. grandchildren has been ill with similar sx. Timing/Duration: week(s) (1) Cough Quality/Degree: mild, dry cough Possible Cause: occasional episodes Modifying Factors: Improves With: coughing Associated Symptoms: cough Allergies/Adverse Reactions: No Known Drug Allergies Allergy (Verified 10/15/18 11:36) Home Medications: Bupropion HCl 150 mg Sr [Wellbutrin SR 150 MG] 150 mg PO DAILY 04/22/19 [ History] Dextroamphetamine/Amphetamine [Adderall 15 mg Tablet] 15 mg PO DAILY 04/22/19 [ History] Lisinopril [Zestril] 2.5 mg PO DAILY 04/22/19 [History] Hx Tetanus, Diphtheria Vaccination/Date Given: Yes Hx Influenza Vaccination/Date Given: No Hx Pneumococcal Vaccination/Date Given: No Immunizations Up to Date: Yes - Review of Systems Constitutional: No Symptoms Eyes: No Symptoms Ears, Nose, & Throat: No Symptoms Respiratory: Cough Cardiac: No Symptoms Abdominal/Gastrointestinal: No Symptoms Genitourinary Symptoms: No Symptoms Musculoskeletal: No Symptoms Skin: No Symptoms Neurological: No Symptoms Psychological: No Symptoms Endocrine: No Symptoms Hematologic/Lymphatic: No Symptoms Immunological/Allergic: No Symptoms All Other Systems: Reviewed and Negative - Past Medical History Pertinent Past Medical History: Yes Neurological History: No Pertinent History ENT History: No Pertinent History Cardiac History: Hypertension Respiratory History: No Pertinent History Endocrine Medical History: No Pertinent History Musculoskeletal History: No Pertinent History GI Medical History: No Pertinent History History: No Pertinent History Psycho-Social History: No Pertinent History Female Reproductive Disorders: No Pertinent History Other Medical History: ADHD - Past Surgical History Past Surgical History: Yes Neuro Surgical History: No Pertinent History Cardiac: No Pertinent History Respiratory: No Pertinent History Gastrointestinal: No Pertinent History Genitourinary: No Pertinent History Musculoskeletal: No Pertinent History Female Surgical History: Hysterectomy, Section Other Surgical History: Tummy Tuck - Social History Smoking Status: Current every day smoker How long have you smoked: 35 years Exposure to second hand smoke: Yes Drug Use: methamphetamines Patient Lives Alone: Yes - Female History Hx Last Menstrual Period: hyster Hx Now: No - Nursing Vital Signs Nursing Vital Signs: Initial Vital Signs Pulse Rate 88 04/22/19 20:16 Respiratory Rate 18 04/22/19 20:16 Blood Pressure 121/81 04/22/19 20:16 O2 Sat by Pulse Oximetry 98 04/22/19 20:16 Pain Scale Pain Intensity 7 - Physical Exam General Appearance: no apparent distress, alert, anxiety Eye Exam: PERRL/EOMI, eyes nml inspection Ears, Nose, Throat Exam: normal ENT inspection, moist mucous membranes Neck Exam: normal inspection, non-tender, supple, full range of motion Respiratory Exam: normal breath sounds, lungs clear, airway intact, No chest tenderness, No respiratory distress Cardiovascular Exam: regular rate/rhythm, normal heart sounds, normal peripheral pulses Gastrointestinal/Abdomen Exam: soft, normal bowel sounds, No tenderness Pelvic Exam: not done Rectal Exam: not done Back Exam: normal inspection, normal range of motion, No CVA tenderness, No vertebral tenderness Extremity Exam: normal inspection, normal range of motion, pelvis stable Neurologic Exam: alert, oriented x 3, 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, 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 Skin Exam: normal color, warm, dry Lymphatic Exam: No adenopathy SpO2 Interpretation: normal SpO2: 98 O2 Delivery: Room Air - Course Nursing assessment & vital signs reviewed: Yes EKG Interpreted by Me: RATE (81), Sinus Rhythm, NORMAL AXIS, NORMAL INTERVALS, NORMAL QRS, Other (no change from comparison ekg dated 03/10/18) Ordered Tests: Active Orders 24 hr Category Date Time Status CHEST 1 VIEW (PORTABLE) Stat Exams 04/22/19 21:34 Taken Medication Summary Discontinued Medications Generic Name Dose Route Start Last Admin Trade Name Freq PRN Reason Stop Dose Admin Benzonatate 200 mg 04/22/19 21:57 04/22/19 22:43 Tessalon Perles 100 Mg PO 04/22/19 21:58 200 mg STAT ONE Administration Ceftriaxone Sodium 1,000 mg 04/22/19 21:56 04/22/19 22:12 Rocephin 1000 Mg Inj IM 04/22/19 21:57 1,000 mg STAT ONE Administration Methylprednisolone Sodium Succinate 125 mg 04/22/19 21:56 04/22/19 22:13 Solu-Medrol 125 Mg IM 04/22/19 21:57 125 mg STAT ONE Administration - Progress Progress: improved Air Movement: good Progress Note: 04/22/19 22:46 cxr-no acute process. Blood Culture(s) Obtained: No Antibiotics given: Yes Counseled pt/family regarding: diagnosis, need for follow-up, rad results - Departure Departure Disposition: Home Clinical Impression: Bronchitis Condition: Stable Critical Care Time: No Referrals: ESTUARDO FLORES MD [Primary Care Provider] - Additional Instructions: drink plenty of fluids. follow up with primary doctor for further management Prescriptions: Azithromycin 250 mg [Zithromax 250 MG TABLET] 250 mg PO ZPACK #6 tablet Benzonatate [Tessalon Perle] 200 mg PO TID #12 capsule Prednisone 10 mg [Deltasone 10 mg] 10 mg PO TID #12 tablet
[2019-04-22] MEDS ORDERED: solu-MEDROL 125 MG IM ONE (21:56)
[2019-04-22] MEDS ORDERED: Rocephin 1000 MG INJ IM ONE (21:56)
[2019-04-22] MEDS ORDERED: Tessalon Perles 100 MG PO ONE (21:57)
[2019-04-22 23:17] VITALS: BP 128/74; PULSE 84; O2SAT 99
--- NOTE | 2019-04-23 09:22 | XRAY ---
Indication: Cough. Comparison: March 10, 2018. Portable chest demonstrates new left base infiltrate with stable incidental left lung calcified granuloma. Remaining heart and lungs unremarkable. 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 Comment: Infiltrate not reported on preliminary interpretation by the ER clinician. Telephone report given to Dr. Weinberg in the ER at 0917 hrs. on April 23, 2019.
== END 2019-04-22 23:17 | disposition home or self-care (01) ==
LOC: ED 20:15
DX: J40 Bronchitis, not specified as acute or chronic (principal); R91.8 Other nonspecific abnormal finding of lung field
CPT/HCPCS: 71045; 96372; 99284; J0696; J2930; A9270-GY

== ENCOUNTER 2019-06-06 09:51 | Emergency (ER) | payer OTHER ==
[2019-06-06] MEDS ORDERED: Rocephin 1000 MG INJ IM ONE (10:41)
--- NOTE | 2019-06-06 10:41 | ERPHSYRPT ---
- History of Present Illness Time Seen by Provider: 06/06/19 10:20 Source: patient Exam Limitations: no limitations Patient Subjective Stated Complaint: Pt states "I have horrible congestion. I was on zithromax a month ago and when I finished it I still was not feeling well so I went to the [facility] and they gave me prednisone and I am on my last dose and I still do not feel well. I am supposed to get tomorrow night and I need to feel better. I was told I have bronchitis at [facility]." Triage Nursing Assessment: Pt presented alert and oriented X 3, skin pwd Pt ambulates with an upright steady gait, able to speak in clear full sentences. Pt in no apparent respiratory distress. Pt has intermittant cough, wheezes noted bilat. Physician History: 48 y/o white female presents with 1 month h/o first nasal congestion and then progressed into cough and chest congestion. pt received a z pack one month ago. pts sx did not improve much. this week she went to [facility] and received steroids and a ventolin inhaler. pt states she is not soa, she does not have cp or abd pain. pt states the steroid helps but she only takes one daily because they make her angry and hateful. pt states she was dx with early pneumonia a month ago. she states she does not want another cxr and does not need another inhaler. she also only has one more steroid dose but does not want any more rx. pt continues to smoke. Timing/Duration: other (one month) Cough Quality/Degree: dry cough Possible Cause: occasional episodes Modifying Factors: Improves With: albuterol inhaler, coughing Associated Symptoms: denies symptoms, cough, nasal congestion Allergies/Adverse Reactions: No Known Drug Allergies Allergy (Verified 10/15/18 11:36) Home Medications: Bupropion HCl 150 mg Sr [Wellbutrin SR 150 MG] 150 mg PO DAILY 04/22/19 [ History] Dextroamphetamine/Amphetamine [Adderall 15 mg Tablet] 15 mg PO DAILY 04/22/19 [ History] Lisinopril [Zestril] 2.5 mg PO DAILY 04/22/19 [History] Hx Tetanus, Diphtheria Vaccination/Date Given: Yes Hx Influenza Vaccination/Date Given: No Hx Pneumococcal Vaccination/Date Given: No Immunizations Up to Date: Yes - Review of Systems Constitutional: No Symptoms Eyes: No Symptoms Ears, Nose, & Throat: Nose Congestion, Sinus Drainage, Hoarse Respiratory: Cough Cardiac: No Symptoms Abdominal/Gastrointestinal: No Symptoms Genitourinary Symptoms: No Symptoms Musculoskeletal: No Symptoms Skin: No Symptoms Neurological: No Symptoms Psychological: No Symptoms Endocrine: No Symptoms Hematologic/Lymphatic: No Symptoms Immunological/Allergic: No Symptoms All Other Systems: Reviewed and Negative - Past Medical History Pertinent Past Medical History: Yes Neurological History: No Pertinent History ENT History: No Pertinent History Cardiac History: Hypertension Respiratory History: No Pertinent History Endocrine Medical History: No Pertinent History Musculoskeletal History: No Pertinent History GI Medical History: No Pertinent History History: No Pertinent History Psycho-Social History: No Pertinent History Female Reproductive Disorders: No Pertinent History Other Medical History: ADHD - Past Surgical History Past Surgical History: Yes Neuro Surgical History: No Pertinent History Cardiac: No Pertinent History Respiratory: No Pertinent History Gastrointestinal: No Pertinent History Genitourinary: No Pertinent History Musculoskeletal: No Pertinent History Female Surgical History: Hysterectomy, Section Other Surgical History: Tummy Tuck - Social History Smoking Status: Current every day smoker How long have you smoked: years Exposure to second hand smoke: Yes Drug Use: methamphetamines Patient Lives Alone: No - Female History Hx Last Menstrual Period: hysterectomy Hx Now: No - Nursing Vital Signs Nursing Vital Signs: Initial Vital Signs Temperature 98.0 F 06/06/19 09:58 Pulse Rate 88 06/06/19 09:58 Respiratory Rate 20 06/06/19 09:58 Blood Pressure 159/103 06/06/19 09:58 O2 Sat by Pulse Oximetry 99 06/06/19 09:58 Pain Scale Pain Intensity 0 - Physical Exam General Appearance: mild distress, alert, anxiety Eye Exam: PERRL/EOMI, eyes nml inspection Ears, Nose, Throat Exam: normal ENT inspection, moist mucous membranes Neck Exam: normal inspection, non-tender, supple, full range of motion Respiratory Exam: airway intact, wheezing (mild bilat), No chest tenderness, No respiratory distress Cardiovascular Exam: regular rate/rhythm, normal heart sounds, normal peripheral pulses Gastrointestinal/Abdomen Exam: soft, normal bowel sounds, No tenderness Pelvic Exam: not done Rectal Exam: not done Back Exam: normal inspection, normal range of motion, No CVA tenderness, No vertebral tenderness Extremity Exam: normal inspection, normal range of motion, pelvis stable Neurologic Exam: alert, oriented x 3, 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, 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 Skin Exam: normal color, warm, dry Lymphatic Exam: No adenopathy SpO2 Interpretation: normal SpO2: 99 O2 Delivery: Room Air - Course Nursing assessment & vital signs reviewed: Yes Ordered Tests: Medication Summary Generic Name Dose Route Start Last Admin Trade Name Freq PRN Reason Stop Dose Admin Hydrocodone Bitart/Acetaminophen 10 ml 06/06/19 10:43 Hydrocodone-Acetamin 2.5-108/5 Ml Solution PO 06/06/19 10:44 STAT STA Discontinued Medications Generic Name Dose Route Start Last Admin Trade Name Freq PRN Reason Stop Dose Admin Ceftriaxone Sodium 1,000 mg 06/06/19 10:41 Rocephin 1000 Mg Inj IM 06/06/19 10:42 STAT ONE Methylprednisolone Sodium Succinate 125 mg 06/06/19 10:42 Solu-Medrol 125 Mg IM 06/06/19 10:43 STAT ONE - Progress Progress: improved Air Movement: good Blood Culture(s) Obtained: No Antibiotics given: Yes Counseled pt/family regarding: diagnosis, need for follow-up - Departure Departure Disposition: Home Clinical Impression: Bronchitis Condition: Stable Critical Care Time: No Referrals: INDER KERR [Primary Care Provider] - Additional Instructions: drink plenty of fluids. stop smoking and avoid exposure to smoke. follow up with primary doctor for further management. continue your inhaler and your steroids as prescribed. Prescriptions: Cefdinir 300 mg PO BID 7 Days #14 capsule Hydrocodone Bit/Acetaminophen [Hydrocodone-Acetaminophen Soln] 10 ml PO Q6H # 120 ml
[2019-06-06] MEDS ORDERED: HYDROCODONE-ACETAMIN 2.5-108/5 ML SOLUTION PO STA (10:43)
[2019-06-06] MEDS ORDERED: PROVENTIL 2.5 MG/3 ML NEB IH ONE ×2 (10:53→11:30)
[2019-06-06] MEDS ORDERED: solu-MEDROL 125 MG ONE (11:10)
[2019-06-06] MEDS ORDERED: Rocephin 1000 MG INJ ONE (11:10)
[2019-06-06] MEDS ORDERED: XYLOCAINE 1% HCL 20 ML MDV ONE (11:10)
[2019-06-06] MEDS ORDERED: HYDROCODONE-ACETAMIN 2.5-108/5 ML SOLUTION ONE (11:10)
[2019-06-06] MEDS: solu-MEDROL 125 MG IM ONE (11:15)
[2019-06-06 11:26] VITALS: BP 128/78
[2019-06-06 11:37] VITALS: PULSE 97; O2SAT 98
== END 2019-06-06 11:51 | disposition home or self-care (01) ==
LOC: ED 09:51
DX: J40 Bronchitis, not specified as acute or chronic (principal); R09.81 Nasal congestion; R09.89 Other specified symptoms and signs involving the circulatory and respiratory systems; R05 Cough; I10 Essential (primary) hypertension
CPT/HCPCS: 94640; 96372; 99284; J0696; J2930; J7609; A9270-GY

== ENCOUNTER 2021-06-08 13:36 | Emergency (ER) | payer OTHER ==
[2021-06-08] MEDS ORDERED: TORAdol 30 mg Injection ONE (14:45)
[2021-06-08] MEDS ORDERED: BENADRYL 50 MG/ML ONE (14:45)
[2021-06-08] MEDS ORDERED: TYLENOL 325 MG ONE (14:46)
[2021-06-08] MEDS ORDERED: Reglan 10 MG/2 ML ONE (14:46)
[2021-06-08] MEDS: TYLENOL 325 MG PO ONE (14:49)
[2021-06-08] MEDS: Reglan 10 MG/2 ML IM ONE (14:50)
[2021-06-08] MEDS: TORAdol 30 mg Injection IM ONE (14:52)
[2021-06-08] MEDS: BENADRYL 50 MG/ML IM ONE (14:53)
[2021-06-08 14:57] VITALS: BP 149/82; PULSE 69; O2SAT 98
--- NOTE | 2021-06-08 15:28 | ERPHSYRPT ---
- History of Present Illness Time Seen by Provider: 06/08/21 13:56 Source: patient Exam Limitations: no limitations Patient Subjective Stated Complaint: " My blood pressure has been up and I have a headache on the left side." Triage Nursing Assessment: Pt presents to ER with complaints of constant throbbing headache in left side of head along with noted hypertension that began yesterday. States been going through a lot of stress regarding her daughter and grandchildren, which she believes is causing her BP issues and headache. Pt is alert and oriented x3. Respirations are easy and unlabored. Pt skin is pink, warm, and dry. Complaints of intermittent blurred vision but pupils are PERRL. Pt complains of nausea but denies vomiting or diarrhea. Physician History: 50 years old female with history of hypertension presented in the ER with chief complaint of left frontotemporal headache since yesterday, continuous, sharp throbbing, moderate to severe intensity, partial relief with taking [id number] medication. She also noticed that her blood pressure was elevated in 150s yesterday. Patient reports she is going through a lot of stress which is adding to her symptoms. Denies any focal numbness tingling or weakness. Does report occasional episode of blurry vision when headache gets worse. No diplopia. No difficulty speech or facial droop. Does not report having history of migraines. Does report having nausea but no vomiting. Timing/Duration: yesterday, constant, sudden, improved Quality: sharpness, throbbing Head Pain Location: frontal, temporal Severity of Pain-Max: severe Severity of Pain-Current: moderate Recent Head Trauma: no recent headache/trauma Associated Symptoms: nausea/vomiting, No confusion, No dizziness, No facial pain, No fever/chills, No flushing, No light-headedness, No loss of consciousness, No nasal congestion, No nasal drainage, No neck pain, No numbness in legs/feet, No rash, No sweating, No scotoma, No seizures, No sinus infection, No sensitive to light, No speech problems, No stiff neck, No trouble walking, No weakness Previous symptoms: no prior history Allergies/Adverse Reactions: No Known Drug Allergies Allergy (Verified 06/08/21 13:54) Home Medications: lisinopriL [Zestril] 2.5 mg PO BID 04/22/19 [History] Dextroamphetamine/Amphetamine [Adderall Xr 30 mg Capsule] 30 mg PO DAILY 06/08/21 [History] Hx Tetanus, Diphtheria Vaccination/Date Given: Yes Hx Influenza Vaccination/Date Given: No Hx Pneumococcal Vaccination/Date Given: No Immunizations Up to Date: Yes Travel Risk - International Travel Have you traveled outside of the country in past 3 weeks: No - Coronavirus Screening Are you exhibiting any of the following symptoms?: No - Vaccine Status Have you recieved a Covid-19 vaccination: Yes 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 - Vaccination Dates Date of 2cond Vaccination (if applicable): unknown - Review of Systems Constitutional: No Symptoms Eyes: No Symptoms Ears, Nose, & Throat: No Symptoms Respiratory: No Symptoms Cardiac: No Symptoms Abdominal/Gastrointestinal: Nausea Genitourinary Symptoms: No Symptoms Musculoskeletal: No Symptoms Skin: No Symptoms Neurological: Headache Psychological: No Symptoms Endocrine: No Symptoms Hematologic/Lymphatic: No Symptoms Immunological/Allergic: No Symptoms - Past Medical History Pertinent Past Medical History: Yes Neurological History: No Pertinent History ENT History: No Pertinent History Cardiac History: Hypertension Respiratory History: No Pertinent History Endocrine Medical History: No Pertinent History Musculoskeletal History: Other GI Medical History: No Pertinent History History: No Pertinent History Psycho-Social History: Attention Deficit Disorder, Depression Female Reproductive Disorders: No Pertinent History Other Medical History: , HYSTERECTOMY, TUMMY TUCK - Past Surgical History Past Surgical History: Yes Neuro Surgical History: No Pertinent History Cardiac: No Pertinent History Respiratory: No Pertinent History Gastrointestinal: No Pertinent History Genitourinary: No Pertinent History Musculoskeletal: No Pertinent History Female Surgical History: Hysterectomy, Section Other Surgical History: Tummy Tuck - Social History Smoking Status: Current every day smoker How long have you smoked: years Exposure to second hand smoke: No Drug Use: methamphetamines Patient Lives Alone: Yes - Female History Hx Now: No - Nursing Vital Signs Nursing Vital Signs: Initial Vital Signs Temperature 97 F 06/08/21 13:45 Pulse Rate 70 06/08/21 13:45 Respiratory Rate 18 06/08/21 13:45 Blood Pressure 146/83 06/08/21 13:45 O2 Sat by Pulse Oximetry 99 06/08/21 13:45 Pain Scale Pain Intensity 8 - Physical Exam General Appearance: no apparent distress, alert Eye Exam: PERRL/EOMI, eyes nml inspection Ears, Nose, Throat Exam: normal ENT inspection, pharynx normal Neck Exam: normal inspection, non-tender, supple, full range of motion Respiratory Exam: normal breath sounds, lungs clear Cardiovascular Exam: regular rate/rhythm, normal heart sounds Gastrointestinal/Abdominal Exam: soft, normal bowel sounds, No tenderness Back Exam: normal inspection, normal range of motion Extremity Exam: normal inspection, normal range of motion Mental Status Exam: alert, oriented x 3, 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 Exam: normal hearing, normal speech, PERRL, No abnormal eye position, No facial asymmetry Coordination/Gait Exam: normal finger to nose, normal gait, normal cerebellar function, negative Romberg's sign Motor/Sensory Exam: no motor deficit, no sensory deficit, no pronator drift, negative Babinski's sign DTR Exam: bicep (R): 2+, bicep (L): 2+, knee (R): 2+, knee (L): 2+ Skin Exam: normal color SpO2 Interpretation: normal SpO2: 98 O2 Delivery: Room Air Ordered Tests: Medication Summary Discontinued Medications Generic Name Dose Route Start Last Admin Trade Name Evon PRN Reason Stop Dose Admin Acetaminophen 975 mg 06/08/21 14:42 06/08/21 14:49 Acetaminophen 325 Mg Tablet PO 06/08/21 14:43 975 mg STAT ONE Administration Acetaminophen Confirm 06/08/21 14:46 Acetaminophen 325 Mg Tablet Administered 06/08/21 14:47 Dose 975 mg .ROUTE .STK-MED ONE Diphenhydramine HCl 25 mg 06/08/21 14:42 06/08/21 14:53 Diphenhydramine Hcl 50 Mg/Ml Vial IM 06/08/21 14:43 25 mg STAT ONE Administration Diphenhydramine HCl Confirm 06/08/21 14:45 Diphenhydramine Hcl 50 Mg/Ml Vial Administered 06/08/21 14:46 Dose 50 mg .ROUTE .STK-MED ONE Ketorolac Tromethamine 30 mg 06/08/21 14:42 06/08/21 14:52 Ketorolac Tromethamine 30 Mg/Ml Inj IM 06/08/21 14:43 30 mg STAT ONE Administration Ketorolac Tromethamine Confirm 06/08/21 14:45 Ketorolac Tromethamine 30 Mg/Ml Inj Administered 06/08/21 14:46 Dose 30 mg .ROUTE .STK-MED ONE Metoclopramide HCl 10 mg 06/08/21 14:42 06/08/21 14:50 Metoclopramide Hcl 10 Mg/2 Ml Vial IM 06/08/21 14:43 10 mg STAT ONE Administration Metoclopramide HCl Confirm 06/08/21 14:46 Metoclopramide Hcl 10 Mg/2 Ml Vial Administered 06/08/21 14:47 Dose 10 mg .ROUTE .STK-MED ONE - Progress Progress: improved Air Movement: good Progress Note: 06/08/21 15:28 Patient has nonfocal neuro exam. Blood pressure in 140s. Offered CT head which she refused. Given migraine cocktail, on reevaluation her headache is almost completely resolved. Recommended outpatient follow-up. Discussed signs symptoms of worsening needing return to ER which she seems understanding. Blood Culture(s) Obtained: No Antibiotics given: No Counseled pt/family regarding: diagnosis, need for follow-up - Departure Departure Disposition: Home Clinical Impression: Headache, Hypertension Condition: Stable Critical Care Time: No Referrals: KRISTEN CARLSON [Primary Care Provider] - Follow up/PCP as directed (1-2 days for reevaluation) Instructions: Headache, Adult (DC) Additional Instructions: Take low-salt diet. Take Tylenol/ibuprofen as needed for headache. Follow-up with your primary care for reevaluation. Return to ER for intractable headache, numbness tingling weakness, double vision, facial asymmetry, difficulty speech etc. Monitor your blood pressure regularly, keep a log and follow-up with PCP to see if needs any medication changes.
== END 2021-06-08 15:34 | disposition home or self-care (01) ==
LOC: ED 13:36
DX: R50.9 Fever, unspecified (principal); I10 Essential (primary) hypertension; R11.0 Nausea; H53.8 Other visual disturbances; Z72.0 Tobacco use
CPT/HCPCS: 96372; 99284; J1200; J1885; A9270-GY

== ENCOUNTER 2021-11-25 02:21 | Emergency (ER) | payer OTHER ==
[2021-11-25] MEDS ORDERED: TORAdol 30 mg Injection IM ONE (02:34)
[2021-11-25] MEDS ORDERED: TORAdol 30 mg Injection ONE (02:38)
--- NOTE | 2021-11-25 02:41 | ERPHSYRPT ---
- History of Present Illness Time Seen by Provider: 11/25/21 02:40 Source: patient Physician History: Patient is a 51-year-old female presents to emergency department for evaluation of low back pain. 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 Patient was lifting a sink 2 days ago and believes she injured her back. Patient awoke early this morning with back soreness. Patient checked her temperature at home and states it was 99.8. Patient presented to our ED today concerned with fever and back pain. Pain described as an ache that is localized. No radiation. No blunt trauma. No change in bowel bladder function. No saddle anesthesia. No recent back procedure. Patient's temperature in our ED today was 98.3. Patient has no urinary symptomology. No frequency no urgency. No suprapubic pain. Patient is otherwise healthy. She voices no other complaints or concerns at this time. Timing/Duration: today Method of Injury: lifting Quality: dull Back Pain Location: lumbar spine Severity of Pain-Max: moderate Severity of Pain-Current: mild Modifying Factors: Improves With: movement Associated Symptoms: chills, lower back pain, muscle spasms, No loss of bowel control, No nausea, No vomiting, No weakness, No sensory/motor loss, No tingling in legs/feet Previous symptoms: no prior history Allergies/Adverse Reactions: No Known Drug Allergies Allergy (Verified 11/25/21 02:39) Home Medications: lisinopriL [Zestril] 2.5 mg PO BID 04/22/19 [History] Dextroamphetamine/Amphetamine [Adderall Xr 30 mg Capsule] 30 mg PO DAILY 06/08/21 [History] Hx Tetanus, Diphtheria Vaccination/Date Given: Yes Hx Influenza Vaccination/Date Given: No Hx Pneumococcal Vaccination/Date Given: No Travel Risk - Vaccine Status Have you recieved a Covid-19 vaccination: Yes Client Support Analyst: Moderna - Vaccination Dates Date of 2cond Vaccination (if applicable): unknown - Review of Systems Constitutional: No Symptoms, No Fever, No Chills Eyes: No Symptoms Ears, Nose, & Throat: No Symptoms Respiratory: No Symptoms, No Cough, No Dyspnea Cardiac: No Symptoms, No Chest Pain, No Edema, No Syncope Abdominal/Gastrointestinal: No Symptoms, No Abdominal Pain, No Nausea, No Vomiting, No Diarrhea Genitourinary Symptoms: No Symptoms, No Dysuria Musculoskeletal: No Symptoms, No Back Pain, No Neck Pain Skin: No Symptoms, No Rash Neurological: No Symptoms, No Dizziness, No Focal Weakness, No Sensory Changes Psychological: No Symptoms Endocrine: No Symptoms Hematologic/Lymphatic: No Symptoms Immunological/Allergic: No Symptoms All Other Systems: Reviewed and Negative - Past Medical History Pertinent Past Medical History: Yes Neurological History: No Pertinent History ENT History: No Pertinent History Cardiac History: Hypertension Respiratory History: No Pertinent History Endocrine Medical History: No Pertinent History Musculoskeletal History: Other GI Medical History: No Pertinent History History: No Pertinent History Psycho-Social History: Attention Deficit Disorder, Depression Female Reproductive Disorders: No Pertinent History Other Medical History: , HYSTERECTOMY, TUMMY TUCK - Past Surgical History Past Surgical History: Yes Neuro Surgical History: No Pertinent History Cardiac: No Pertinent History Respiratory: No Pertinent History Gastrointestinal: No Pertinent History Genitourinary: No Pertinent History Musculoskeletal: No Pertinent History Female Surgical History: Hysterectomy, Section Other Surgical History: Tummy Tuck - Social History Smoking Status: Current every day smoker How long have you smoked: years Exposure to second hand smoke: No Drug Use: methamphetamines Patient Lives Alone: Yes - Nursing Vital Signs Nursing Vital Signs: Initial Vital Signs Temperature 98.3 F 11/25/21 02:31 Pulse Rate 95 H 11/25/21 02:31 Respiratory Rate 16 11/25/21 02:31 Blood Pressure 171/98 11/25/21 02:31 O2 Sat by Pulse Oximetry 99 11/25/21 02:31 Pain Scale Pain Intensity [Back] 7 Pain Intensity 7 - Physical Exam General Appearance: no apparent distress, alert Eye Exam: PERRL/EOMI, eyes nml inspection Ears, Nose, Throat Exam: normal ENT inspection, TMs normal, pharynx normal Neck Exam: normal inspection, non-tender, supple, full range of motion, No meningismus, No midline tenderness Respiratory Exam: normal breath sounds, lungs clear, airway intact, No respiratory distress Cardiovascular Exam: regular rate/rhythm, normal heart sounds, normal peripheral pulses Gastrointestinal Exam: soft, normal bowel sounds, No tenderness, No mass Back Exam: normal inspection, normal range of motion, muscle spasm (Bilateral lumbar paraspinal musculature spasms. 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 tested, normal mood/affect, nml station & gait, sensation nml, No motor deficits Skin Exam: normal color, warm, dry, No rash Lymphatic Exam: No adenopathy SpO2 Interpretation: normal SpO2: 98 O2 Delivery: Room Air - Course Nursing assessment & vital signs reviewed: Yes Ordered Tests: Active Orders 24 hr Category Date Time Status HCG,QUALITATIVE URINE Stat Lab 11/25/21 02:41 Ordered UA W/RFX CULTURE Stat Lab 11/25/21 02:41 Ordered Medication Summary Discontinued Medications Generic Name Dose Route Start Last Admin Trade Name Evon PRN Reason Stop Dose Admin Ketorolac Tromethamine 30 mg 11/25/21 02:34 11/25/21 02:42 Ketorolac Tromethamine 30 Mg/Ml Inj IM 11/25/21 02:35 30 mg STAT ONE Administration Ketorolac Tromethamine Confirm 11/25/21 02:38 Ketorolac Tromethamine 30 Mg/Ml Inj Administered 11/25/21 02:39 Dose 30 mg .ROUTE .STK-MED ONE Lab/Rad Data: Laboratory Results 11/25/21 11/25/21 Range/Units 02:41 02:41 Urinalys Dipstick Clnc MAIN LAB Urine Color YELLOW (YELLOW) Urine Appearance CLEAR (CLEAR) Urine pH 7.0 (5-6) Ur Specific [place] 1.025 (1.005-1.025) POC Urine Protein Conf NEGATIVE (Negative) Urine Ketones NEGATIVE (NEGATIVE) Urine Nitrite NEGATIVE (NEGATIVE) Urine Bilirubin NEGATIVE (NEGATIVE) Urine Urobilinogen 1 (0-1) mg/dL Urine Leukocytes NEGATIVE (NEGATIVE) Urine WBC (Auto) NONE (0-5) /HPF Urine RBC (Auto) NONE (0-2) /HPF U Epithel Cells (Auto) RARE (FEW) /HPF Urine Bacteria (Auto) NONE (NEGATIVE) /HPF Urine RBC NEGATIVE (0-5) Cecilio/ul Urine Mucus (Auto) SLIGHT (NEGATIVE) /HPF Ur Culture Indicated? NO Urine Glucose NEGATIVE (NEGATIVE) mg/dL Urine HCG, Qual NEGATIVE (Negative) - Progress Progress: improved Progress Note: Patient reassessed. Pain improved. UA negative for UTI. hCG negative. No midline pain. No indication for imaging studies at this time. Will discharge home. Patient agrees to follow-up with primary care doctor within 48 hours for evaluation. Portions of this note were created with voice recognition technology. There may be grammatical, spelling, punctuation or sound alike errors 11/25/21 02:59 Counseled pt/family regarding: lab results, diagnosis, need for follow-up - Departure Departure Disposition: Home Clinical Impression: Lumbosacral strain Condition: Stable Critical Care Time: No Referrals: KRISTEN CARLSON [Primary Care Provider] - Follow up/PCP as directed Additional Instructions: Discharge/Care Plan EDIL SCHREIBER was seen on 11/25/21 in the Emergency Room. The patient was counseled regarding Diagnosis,Lab results, Imaging studies, need for follow up and when to return to the Emergency Room. Prescriptions given: Discharge Note I have spoken with the patient and/or caregivers. I have explained the patient's condition, diagnosis and treatment plan based on the information available to me at this time. I have answered the patient's and/or caregiver's questions and addressed any concerns. The patient and/or caregivers have as good understanding of the patient's diagnosis, condition and treatment plan as can be expected at this point. The vital signs have been stable. The patient's condition is stable and appropriate for discharge from the emergency department. The patient will pursue further outpatient evaluation with the primary care physician or other designated or consulting physician as outlined in the discharge instructions. The patient and/or caregivers are agreeable to this plan of care and follow-up instructions have been explained in detail. The patient and/or caregivers have received these instruction. The patient/and or caregivers are aware that any significant change in condition or worsening of symptoms should prompt an immediate return to this or the closest emergency department or call 911.
[2021-11-25 02:53] LABS: Epithelial Cells RARE /HPF (FEW); Mucus SLIGHT /HPF (NEGATIVE)
[2021-11-25 02:54] LABS: Appearance CLEAR (CLEAR); Bilirubin NEGATIVE (NEGATIVE); Dipstick done @ ? MAIN LAB; Glucose NEGATIVE (NEGATIVE); Ketones NEGATIVE (NEGATIVE); Nitrite NEGATIVE (NEGATIVE); Protein,Urine Dip NEGATIVE (Negative); RBC NEGATIVE Ery/ul (0-5); Specific Gravity 1.025 (1.005-1.025); Urobilinogen 1 mg/dL (0-1)
[2021-11-25 02:55] LABS: Urine Cultured Indicated? NO
[2021-11-25 03:08] VITALS: BP 153/83; PULSE 88; O2SAT 96
== END 2021-11-25 03:08 | disposition home or self-care (01) ==
LOC: ED 02:21
DX: S39.012A Strain of muscle, fascia and tendon of lower back, initial encounter (principal); X50.0XXA Overexertion from strenuous movement or load, initial encounter; I10 Essential (primary) hypertension; Z72.0 Tobacco use; Z79.899 Other long term (current) drug therapy
CPT/HCPCS: 81015; 84703; 96372; 99284; J1885

== ENCOUNTER 2022-01-19 19:14 | Emergency (ER) | payer OTHER ==
[2022-01-19] MEDS ORDERED: BENADRYL 50 MG/ML IV ONE (19:54)
[2022-01-19] MEDS ORDERED: Reglan 10 MG/2 ML IV ONE (19:54)
[2022-01-19] MEDS ORDERED: TYLENOL 325 MG PO ONE (19:54)
[2022-01-19] MEDS ORDERED: TORAdol 30 mg Injection IV ONE (19:54)
[2022-01-19] MEDS ORDERED: Sodium Chloride 0.9% 1000 ML 1,000 ML IV STA (19:54)
--- NOTE | 2022-01-19 20:23 | ERPHSYRPT ---
- History of Present Illness Time Seen by Provider: 01/19/22 19:54 Source: patient Exam Limitations: no limitations Patient Subjective Stated Complaint: pt states she has had a headache for the last 4 days. today pain is in the rt frontal and occipatal areas Triage Nursing Assessment: pt alert and oriented, answers questions approp. pt ambulatory with steady gait noted. respirations nonlabored. skin warm and dry. pupils equal and reactive. bilat upper and lower ext strength equal and wnl. Physician History: 51 years old female presented to the ER with 4-day history of headache initially on the left side and now having on the right side of the occipital area without associated nausea vomiting, blurry vision, numbness tingling weakness. No difficulty movements of neck. No fever or chills reported. Patient has been staying outside in hot and is concerned about getting overheated. She has been taking [id number] medication along with meloxicam with no significant relief. Timing/Duration: day(s) (4), gradual onset, worse Quality: sharpness Head Pain Location: frontal, parietal Severity of Pain-Max: severe Severity of Pain-Current: severe Recent Head Trauma: no recent headache/trauma Modifying Factors: Worsens With: noise, position Associated Symptoms: denies symptoms Previous symptoms: same symptoms as today Allergies/Adverse Reactions: No Known Drug Allergies Allergy (Verified 01/19/22 19:46) Home Medications: lisinopriL [Zestril] 5 mg PO BID 04/22/19 [History] Dextroamphetamine/Amphetamine [Adderall Xr 30 mg Capsule] 30 mg PO DAILY 06/08/21 [History] Lamotrigine [Lamotrigine ER] 25 mg PO DAILY 01/19/22 [History] Meloxicam 15 mg [Meloxicam 15 MG] 15 mg PO DAILY 01/19/22 [History] Hx Tetanus, Diphtheria Vaccination/Date Given: Yes Hx Influenza Vaccination/Date Given: Yes Hx Pneumococcal Vaccination/Date Given: No Immunizations Up to Date: Yes Travel Risk - International Travel Have you traveled outside of the country in past 3 weeks: No - Coronavirus Screening Are you exhibiting any of the following symptoms?: No Close contact with a COVID-19 positive Pt in past 14-21 Days: No - Vaccine Status Have you recieved a Covid-19 vaccination: Yes Yeast Culture Developer: Moderna - Vaccination Dates Date of 2cond Vaccination (if applicable): 2020 - Review of Systems Constitutional: No Symptoms Eyes: No Symptoms Ears, Nose, & Throat: No Symptoms Respiratory: No Symptoms Cardiac: No Symptoms Abdominal/Gastrointestinal: No Symptoms Genitourinary Symptoms: No Symptoms Musculoskeletal: No Symptoms Skin: No Symptoms Neurological: Headache Psychological: No Symptoms Endocrine: No Symptoms Hematologic/Lymphatic: No Symptoms Immunological/Allergic: No Symptoms - Past Medical History Pertinent Past Medical History: Yes Neurological History: No Pertinent History ENT History: No Pertinent History Cardiac History: Hypertension Respiratory History: No Pertinent History Endocrine Medical History: No Pertinent History Musculoskeletal History: Other GI Medical History: No Pertinent History History: No Pertinent History Psycho-Social History: Attention Deficit Disorder, Depression Female Reproductive Disorders: No Pertinent History Other Medical History: , HYSTERECTOMY, TUMMY TUCK - Past Surgical History Past Surgical History: Yes Neuro Surgical History: No Pertinent History Cardiac: No Pertinent History Respiratory: No Pertinent History Gastrointestinal: No Pertinent History Genitourinary: No Pertinent History Musculoskeletal: No Pertinent History Female Surgical History: Hysterectomy, Section Other Surgical History: Tummy Tuck - Social History Smoking Status: Current every day smoker How long have you smoked: 25yrs Exposure to second hand smoke: No Drug Use: methamphetamines Patient Lives Alone: Yes - Nursing Vital Signs Nursing Vital Signs: Initial Vital Signs Temperature 97.2 F 01/19/22 19:35 Pulse Rate 69 01/19/22 19:35 Respiratory Rate 16 01/19/22 19:35 Blood Pressure 178/105 01/19/22 19:35 O2 Sat by Pulse Oximetry 98 01/19/22 19:35 Pain Scale Pain Intensity 7 - Physical Exam General Appearance: no apparent distress, alert Eye Exam: PERRL/EOMI, eyes nml inspection Ears, Nose, Throat Exam: normal ENT inspection, TMs normal, pharynx normal, moist mucous membranes Neck Exam: normal inspection, non-tender, supple, full range of motion Respiratory Exam: normal breath sounds, lungs clear Cardiovascular Exam: regular rate/rhythm, normal heart sounds Gastrointestinal/Abdominal Exam: soft, normal bowel sounds, No tenderness Back Exam: normal inspection, normal range of motion, No CVA tenderness Extremity Exam: normal inspection, normal range of motion Mental Status Exam: alert, oriented x 3, 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 Exam: normal hearing, normal speech, PERRL Coordination/Gait Exam: normal finger to nose, normal gait, normal cerebellar function, negative Romberg's sign Motor/Sensory Exam: no motor deficit, no sensory deficit, no pronator drift, negative Babinski's sign DTR Exam: bicep (R): 2+, bicep (L): 2+, knee (R): 2+, knee (L): 2+ Skin Exam: normal color SpO2 Interpretation: normal SpO2: 98 O2 Delivery: Room Air Ordered Tests: Active Orders 24 hr Category Date Time Status IV Insertion STAT Care 01/19/22 19:54 Active CBC W DIFF Stat Lab 01/19/22 20:25 Completed CK (IN-HOUSE) [CK-Creatinine Phosphokinase] Stat Lab 01/19/22 20:25 Completed CMP Stat Lab 01/19/22 20:25 Completed UA W/RFX CULTURE Stat Lab 01/19/22 20:01 Completed Medication Summary Discontinued Medications Generic Name Dose Route Start Last Admin Trade Name Freq PRN Reason Stop Dose Admin Acetaminophen 975 mg 01/19/22 19:54 01/19/22 20:36 Acetaminophen 325 Mg Tablet PO 01/19/22 19:55 975 mg STAT ONE Administration Acetaminophen Confirm 01/19/22 20:33 Acetaminophen 325 Mg Tablet Administered 01/19/22 20:34 Dose 975 mg .ROUTE .STK-MED ONE Diphenhydramine HCl 25 mg 01/19/22 19:54 01/19/22 20:42 Diphenhydramine Hcl 50 Mg/Ml Vial IV 01/19/22 19:55 25 mg STAT ONE Administration Diphenhydramine HCl Confirm 01/19/22 20:32 Diphenhydramine Hcl 50 Mg/Ml Vial Administered 01/19/22 20:33 Dose 50 mg .ROUTE .STK-MED ONE Sodium Chloride 1,000 mls @ 999 mls/hr 01/19/22 19:54 01/19/22 20:38 Sodium Chloride 0.9% 1000 Ml IV 01/19/22 20:54 999 mls/hr .Q1H1M STA Administration Sodium Chloride Confirm 01/19/22 20:33 Sodium Chloride 0.9% 1000 Ml Administered 01/19/22 20:34 Dose 1,000 mls @ ud .ROUTE .STK-MED ONE Ketorolac Tromethamine 30 mg 01/19/22 19:54 01/19/22 20:39 Ketorolac Tromethamine 30 Mg/Ml Inj IV 01/19/22 19:55 30 mg STAT ONE Administration Ketorolac Tromethamine Confirm 01/19/22 20:32 Ketorolac Tromethamine 30 Mg/Ml Inj Administered 01/19/22 20:33 Dose 30 mg .ROUTE .STK-MED ONE Metoclopramide HCl 10 mg 01/19/22 19:54 01/19/22 20:44 Metoclopramide Hcl 10 Mg/2 Ml Vial IV 01/19/22 19:55 10 mg STAT ONE Administration Metoclopramide HCl Confirm 01/19/22 20:33 Metoclopramide Hcl 10 Mg/2 Ml Vial Administered 01/19/22 20:34 Dose 10 mg .ROUTE .STK-MED ONE Lab/Rad Data: Laboratory Result Diagrams 01/19/22 20:25 01/19/22 20:25 Laboratory Results 01/19/22 01/19/22 01/19/22 Range/Units 20:25 20:25 20:25 WBC 10.4 (4.0-10.5) x10^3/uL RBC 4.99 (4.1-5.4) x10^6/uL Hgb 14.9 (12.0-16.0) g/dL Hct 45.1 (35-47) % MCV 90.4 (78-100) fL MCH 29.9 (26-32) pg MCHC 33.0 (32-36) g/dL RDW 13.1 (11.5-14.0) % Plt Count 321 (150-450) x10^3/uL MPV 9.9 (7.5-11.0) fL Gran % 64.7 (36.0-66.0) % Immature Gran % (Auto) 0.2 (0.00-0.4) % Nucleat RBC Rel Count 0.0 (0.00-0.1) % Eos # (Auto) 0.23 (0-0.5) x10^3/uL Immature Gran # (Auto) 0.02 (0.00-0.03) x10^3u/L Absolute Lymphs (auto) 2.74 (1.0-4.6) x10^3/uL Absolute Monos (auto) 0.60 (0.0-1.3) x10^3/uL Absolute Nucleated RBC 0.00 (0.00-0.01) x10^3u/L Lymphocytes % 26.3 (24.0-44.0) % Monocytes % 5.8 (0.0-12.0) % Eosinophils % 2.2 (0.00-5.0) % Basophils % 0.8 (0.0-0.4) % Absolute Granulocytes 6.75 (1.4-6.9) x10^3/uL Basophils # 0.08 (0-0.4) x10^3/uL Sodium 139 (137-145) mmol/L Potassium 4.1 (3.5-5.1) mmol/L Chloride 101 (98-107) mmol/L Carbon Dioxide 32 H (22-30) mmol/L Anion Gap 9.9 (5-15) MEQ/L BUN 14 (7-17) mg/dL Creatinine 0.73 (0.52-1.04) mg/dL Estimated GFR > 60.0 ML/MIN Glucose 106 (74-106) mg/dL Calcium 9.5 (8.4-10.2) mg/dL Total Bilirubin 0.60 (0.2-1.3) mg/dL AST 24 (14-36) U/L ALT 19 (0-35) U/L Alkaline Phosphatase 78 (38-126) U/L Creatine Kinase 57 (30-135) U/L Serum Total Protein 7.5 (6.3-8.2) g/dL Albumin 4.2 (3.5-5.0) g/dL Urinalys Dipstick Clnc Urine Color (YELLOW) Urine Appearance (CLEAR) Urine pH (5-6) Ur Specific [place] (1.005-1.025) POC Urine Protein Conf (Negative) Urine Ketones (NEGATIVE) Urine Nitrite (NEGATIVE) Urine Bilirubin (NEGATIVE) Urine Urobilinogen (0-1) mg/dL Urine Leukocytes (NEGATIVE) Urine WBC (Auto) (0-5) /HPF Urine RBC (Auto) (0-2) /HPF U Epithel Cells (Auto) (FEW) /HPF Urine Bacteria (Auto) (NEGATIVE) /HPF Urine RBC (0-5) Cecilio/ul Urine Mucus (Auto) (NEGATIVE) /HPF Ur Culture Indicated? Urine Glucose (NEGATIVE) mg/dL 01/19/22 Range/Units 20:01 WBC (4.0-10.5) x10^3/uL RBC (4.1-5.4) x10^6/uL Hgb (12.0-16.0) g/dL Hct (35-47) % MCV (78-100) fL MCH (26-32) pg MCHC (32-36) g/dL RDW (11.5-14.0) % Plt Count (150-450) x10^3/uL MPV (7.5-11.0) fL Gran % (36.0-66.0) % Immature Gran % (Auto) (0.00-0.4) % Nucleat RBC Rel Count (0.00-0.1) % Eos # (Auto) (0-0.5) x10^3/uL Immature Gran # (Auto) (0.00-0.03) x10^3u/L Absolute Lymphs (auto) (1.0-4.6) x10^3/uL Absolute Monos (auto) (0.0-1.3) x10^3/uL Absolute Nucleated RBC (0.00-0.01) x10^3u/L Lymphocytes % (24.0-44.0) % Monocytes % (0.0-12.0) % Eosinophils % (0.00-5.0) % Basophils % (0.0-0.4) % Absolute Granulocytes (1.4-6.9) x10^3/uL Basophils # (0-0.4) x10^3/uL Sodium (137-145) mmol/L Potassium (3.5-5.1) mmol/L Chloride (98-107) mmol/L Carbon Dioxide (22-30) mmol/L Anion Gap (5-15) MEQ/L BUN (7-17) mg/dL Creatinine (0.52-1.04) mg/dL Estimated GFR ML/MIN Glucose (74-106) mg/dL Calcium (8.4-10.2) mg/dL Total Bilirubin (0.2-1.3) mg/dL AST (14-36) U/L ALT (0-35) U/L Alkaline Phosphatase (38-126) U/L Creatine Kinase (30-135) U/L Serum Total Protein (6.3-8.2) g/dL Albumin (3.5-5.0) g/dL Urinalys Dipstick Clnc MAIN LAB Urine Color YELLOW (YELLOW) Urine Appearance SLIGHTLY CLOUDY (CLEAR) Urine pH 7.0 (5-6) Ur Specific [place] 1.020 (1.005-1.025) POC Urine Protein Conf NEGATIVE (Negative) Urine Ketones NEGATIVE (NEGATIVE) Urine Nitrite NEGATIVE (NEGATIVE) Urine Bilirubin NEGATIVE (NEGATIVE) Urine Urobilinogen 0.2 (0-1) mg/dL Urine Leukocytes NEGATIVE (NEGATIVE) Urine WBC (Auto) NONE (0-5) /HPF Urine RBC (Auto) NONE (0-2) /HPF U Epithel Cells (Auto) RARE (FEW) /HPF Urine Bacteria (Auto) NONE (NEGATIVE) /HPF Urine RBC NEGATIVE (0-5) Cecilio/ul Urine Mucus (Auto) SLIGHT (NEGATIVE) /HPF Ur Culture Indicated? NO Urine Glucose NEGATIVE (NEGATIVE) mg/dL - Progress Progress: improved Air Movement: good Progress Note: 01/19/22 21:52 51 years old is evaluated for headache. She has a nonfocal neuro exam. She is given fluid bolus and migraine cocktail, on reevaluation her headache is completely resolved. Baseline work-up grossly unremarkable. Patient could be having some heat exhaustion related headache. I have offered her CT head which she declined. She is advised to follow-up with her primary care and keeping her well-hydrated and discuss signs symptoms of worsening needing return to ER which she seems understanding. Stable for discharge. Blood Culture(s) Obtained: No Antibiotics given: No Counseled pt/family regarding: lab results, diagnosis, need for follow-up - Departure Departure Disposition: Home Clinical Impression: Headache Condition: Stable Critical Care Time: No Referrals: KRISTEN CARLSON [Primary Care Provider] - Follow up/PCP as directed (1-2 d ays for reevaluation) Instructions: Headache, Adult (DC) Additional Instructions: Drink plenty of fluids. Take Tylenol/ibuprofen as needed for headache. Follow- up with primary care for reevaluation. Return to ER for intractable headache, numbness tingling weakness, blurry vision etc.
[2022-01-19 20:32] LABS: Absolute Neutrophil Ct (ANC) 6.75 x10^3/uL (1.4-6.9); Basophil (Absolute #) 0.08 x10^3/uL (0-0.4); Eosinophil % 2.2 % (0.00-5.0); Eosinophil (Absolute #) 0.23 x10^3/uL (0-0.5); Hematocrit 45.1 % (35-47); Hemoglobin 14.9 g/dL (12.0-16.0); Lymphocyte (Absolute #) 2.74 x10^3/uL (1.0-4.6); Lymphocytes % 26.3 % (24.0-44.0); Mean Cell Volume 90.4 fL (78-100); Mean Corpuscular Hemoglobin 29.9 pg (26-32); Mean Platelet Volume 9.9 fL (7.5-11.0); Monocytes % 5.8 % (0.0-12.0); Neutrophil % 64.7 % (36.0-66.0); Platelet Count 321 x10^3/uL (150-450); Red Blood Count 4.99 x10^6/uL (4.1-5.4); Red Cell Distribution Width 13.1 % (11.5-14.0); White Blood Count 10.4 x10^3/uL (4.0-10.5)
[2022-01-19] MEDS ORDERED: TORAdol 30 mg Injection ONE (20:32)
[2022-01-19] MEDS ORDERED: BENADRYL 50 MG/ML ONE (20:32)
[2022-01-19] MEDS ORDERED: Reglan 10 MG/2 ML ONE (20:33)
[2022-01-19] MEDS ORDERED: TYLENOL 325 MG ONE (20:33)
[2022-01-19] MEDS ORDERED: Sodium Chloride 0.9% 1000 ML 1,000 ML ONE (20:33)
[2022-01-19 20:39] LABS: Appearance SLIGHTLY CLOUDY (CLEAR); Bilirubin NEGATIVE (NEGATIVE); Dipstick done @ ? MAIN LAB; Glucose NEGATIVE (NEGATIVE); Ketones NEGATIVE (NEGATIVE); Nitrite NEGATIVE (NEGATIVE); Protein,Urine Dip NEGATIVE (Negative); RBC NEGATIVE Ery/ul (0-5); Urobilinogen 0.2 mg/dL (0-1)
[2022-01-19 20:41] LABS: Epithelial Cells RARE /HPF (FEW); Mucus SLIGHT /HPF (NEGATIVE); Urine Cultured Indicated? NO
[2022-01-19 20:51] LABS: ALBUMIN 4.2 g/dL (3.5-5.0); ALKALINE PHOSPHATASE 78 U/L (38-126); ANION GAP 9.9 MEQ/L (5-15); BLOOD UREA NITROGEN 14 mg/dL (7-17); CHLORIDE 101 mmol/L (98-107); Calcium 9.5 mg/dL (8.4-10.2); Carbon Dioxide 32 mmol/L (22-30); Creatinine 1 0.73 mg/dL (0.52-1.04); EST GLOMERULAR FILTRATION RATE > 60.0 ML/MIN; Glucose 106 mg/dL (74-106); Potassium 4.1 mmol/L (3.5-5.1); SGOT/AST 24 U/L (14-36); SGPT/ALT 19 U/L (0-35); SODIUM 139 mmol/L (137-145); Total Protein 7.5 g/dL (6.3-8.2)
[2022-01-19 21:08] VITALS: BP 153/89; O2SAT 98
[2022-01-19 22:06] VITALS: PULSE 76
== END 2022-01-19 22:07 | disposition home or self-care (01) ==
LOC: ED 19:14
DX: R51.9 Headache, unspecified (principal); I10 Essential (primary) hypertension; Z72.0 Tobacco use; Z79.899 Other long term (current) drug therapy
CPT/HCPCS: 36000; 36415; 80053; 81015; 82550; 85025; 96374; 96375; 99284; J1200; J1885; A9270-GY

== ENCOUNTER 2022-08-26 21:50 | Emergency (ER) | payer OTHER ==
--- NOTE | 2022-08-26 21:53 | ERPHSYRPT ---
- History of Present Illness Time Seen by Provider: 08/26/22 21:53 Source: patient Exam Limitations: no limitations Physician History: This is a 51-year-old white female patient of Dr. Buzz Carlson who has chronic hip and knee pain. 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 She has noticed increasing pain in her knees and hips. She saw her primary care physician recently and they ordered an outpatient test which she does not recall the name of. The patient states that she thinks it might have been a test for blood clot, however, it appears it was a greater graphic study and not a blood draw. Patient has a history of ADD age and depression as well as hypertension. She has a left knee replacement scheduled in the future. Patient denies cough. She denies shortness of breath. She has not experienced any falls or trauma to her hips or lower extremities. Her pain complaint is chronic Method of Injury: other (No fall or injury) Occurred: other (Chronic) Quality: intermittent, aching Severity of Pain-Max: moderate Severity of Pain-Current: moderate Lower Extremities Pain: hip: bilateral, knee: bilateral Modifying Factors: Improves With: movement Associated Symptoms: none Allergies/Adverse Reactions: No Known Drug Allergies Allergy (Verified 08/26/22 22:02) Home Medications: lisinopriL [Zestril] 5 mg PO BID 04/22/19 [History] Dextroamphetamine/Amphetamine [Adderall Xr 30 mg Capsule] 30 mg PO DAILY 06/08/21 [History] Lamotrigine [Lamotrigine ER] 25 mg PO DAILY 01/19/22 [History] Meloxicam 15 mg [Meloxicam 15 MG] 15 mg PO DAILY 01/19/22 [History] Hx Tetanus, Diphtheria Vaccination/Date Given: Yes Hx Influenza Vaccination/Date Given: Yes Hx Pneumococcal Vaccination/Date Given: No Travel Risk - International Travel Have you traveled outside of the country in past 3 weeks: No - Coronavirus Screening Are you exhibiting any of the following symptoms?: No Close contact with a COVID-19 positive Pt in past 14-21 Days: No - Vaccine Status Have you recieved a Covid-19 vaccination: Yes Membership Assistant: Moderna - Vaccination Dates Date of 2cond Vaccination (if applicable): 2020 - Review of Systems Constitutional: No Symptoms Eyes: No Symptoms Ears, Nose, & Throat: No Symptoms Respiratory: No Symptoms Cardiac: No Symptoms Abdominal/Gastrointestinal: No Symptoms Genitourinary Symptoms: No Symptoms Musculoskeletal: Joint Pain (Bilateral hips and bilateral knees) Skin: No Symptoms Neurological: No Symptoms Psychological: No Symptoms Endocrine: No Symptoms Hematologic/Lymphatic: No Symptoms Immunological/Allergic: No Symptoms All Other Systems: Reviewed and Negative - Past Medical History Pertinent Past Medical History: Yes Neurological History: No Pertinent History ENT History: No Pertinent History Cardiac History: Hypertension Respiratory History: No Pertinent History Endocrine Medical History: No Pertinent History Musculoskeletal History: Other GI Medical History: No Pertinent History History: No Pertinent History Psycho-Social History: Attention Deficit Disorder, Depression Female Reproductive Disorders: No Pertinent History Other Medical History: , HYSTERECTOMY, TUMMY TUCK - Past Surgical History Past Surgical History: Yes Neuro Surgical History: No Pertinent History Cardiac: No Pertinent History Respiratory: No Pertinent History Gastrointestinal: No Pertinent History Genitourinary: No Pertinent History Musculoskeletal: No Pertinent History Female Surgical History: Hysterectomy, Section Other Surgical History: Tummy Tuck - Social History Smoking Status: Current every day smoker How long have you smoked: 25yrs Exposure to second hand smoke: No Drug Use: methamphetamines Patient Lives Alone: Yes - Nursing Vital Signs Nursing Vital Signs: Initial Vital Signs Temperature 97.5 F 08/26/22 22:02 Pulse Rate 83 08/26/22 22:02 Respiratory Rate 18 08/26/22 22:02 Blood Pressure 160/92 08/26/22 22:02 O2 Sat by Pulse Oximetry 99 08/26/22 22:02 Pain Scale Pain Intensity 9 - Physical Exam General Appearance: no apparent distress, alert, anxiety Eyes, Ears, Nose, Throat Exam: normal ENT inspection, moist mucous membranes Neck Exam: normal inspection, non-tender, supple, full range of motion Cardiovascular/Respiratory Exam: chest non-tender, no respiratory distress Gastrointestinal/Abdominal Exam: non-tender Back Exam: normal inspection, normal range of motion, No CVA tenderness, No vertebral tenderness Hips Exam: bilateral: normal inspection, normal range of motion, no evidence of injury, soft tissue tenderness Legs Exam: bilateral leg: non-tender, normal inspection, normal range of motion, no evidence of injury Knees Exam: bilateral knee: normal inspection, normal range of motion, no evidence of injury, soft tissue tenderness Ankle Exam: bilateral ankle: non-tender, normal inspection, normal range of mot ion, no evidence of injury Foot Exam: bilateral foot: non-tender, normal inspection, normal range of motion, no evidence of injury Neuro/Tendon Exam: normal sensation, normal motor functions, normal tendon functions, responds to pain, no evidence tendon injury Mental Status Exam: alert, oriented x 3, cooperative Skin Exam: normal color, warm, dry SpO2 Interpretation: normal O2 Delivery: Room Air - Course Nursing assessment & vital signs reviewed: Yes Ordered Tests: Active Orders 24 hr Category Date Time Status D-DIMER QUANTITATIVE Stat Lab 08/26/22 22:53 Completed Medication Summary Discontinued Medications Generic Name Dose Route Start Last Admin Trade Name Evon PRN Reason Stop Dose Admin Oxycodone/Acetaminophen 1 tab 08/26/22 22:32 08/26/22 22:38 Oxycodone Hcl/Apap 5 Mg/325 Mg Tablet PO 08/26/22 22:33 1 tab STAT STA Administration Oxycodone/Acetaminophen Confirm 08/26/22 22:37 Oxycodone Hcl/Apap 5 Mg/325 Mg Tablet Administered 08/26/22 22:38 Dose 1 tab .ROUTE .STK-MED ONE Oxycodone/Acetaminophen 2 tab 08/26/22 22:44 08/26/22 22:53 Oxycodone Hcl/Apap 5 Mg/325 Mg Tablet PO 08/26/22 22:45 2 tab SENT HOME W/ PATIENT STA Administration Oxycodone/Acetaminophen Confirm 08/26/22 22:48 Oxycodone Hcl/Apap 5 Mg/325 Mg Tablet Administered 08/26/22 22:49 Dose 2 tab .ROUTE .STK-MED ONE Prednisone 20 mg 08/26/22 22:32 08/26/22 22:38 Prednisone 20 Mg Tablet PO 08/26/22 22:33 20 mg STAT ONE Administration Prednisone Confirm 08/26/22 22:37 Prednisone 20 Mg Tablet Administered 08/26/22 22:38 Dose 20 mg .ROUTE .STK-MED ONE Lab/Rad Data: Laboratory Results 08/26/22 Range/Units 22:53 D-Dimer 0.29 (0.0-0.50) mg/L - Progress Progress: unchanged, pain not gone completely Progress Note: 08/26/22 22:39 This patient's medical condition is of low complexity. Patient has chronic issues of pain in both her hips in both her knees without any acute trauma. It is not necessary that she undergoes any radiographic studies. I will order a D- dimer. This is to rule in or rule out the need for an acute, emergent venous Doppler study. This is based on the patient's complaint, history of present illness and physical findings on examination. Patient does not have evidence of lack of blood flow to her feet. She does not evidence of any cellulitis or infection. Patient has not had any acute traumatic injury or fall. Therefore I am only ordering the D-dimer. We discussed acute versus chronic pain issues. We will provide her with a prescription for prednisone as an outpatient. We will give her a Percocet 5/325 here in the emergency department and a 20 mg prednisone pill orally. I will then send a prescription for prednisone 10 mg orally 3 times a day for 4 days and provide her with 2 take-home Percocet 5/325 mg to be used once every 8 hours as needed for pain control. The discharge planning will also include patient following up with her primary care provider and keeping her appointment on August 31 for her venous Doppler study. Counseled pt/family regarding: lab results, diagnosis, need for follow-up Medical Desision Making - Discussion of managment Reviewed:: Test results Agreed on:: Treatment plan, need for follow-up - Diagnostic Testing Diagnostic test were ordered, analyzed, and reviewed by me: Yes - Risk of complications Low Risk: Low risk of morbidity from additional dx testing or treatment - Departure Departure Disposition: Home Clinical Impression: Chronic hip pain, Chronic knee pain Condition: Stable Critical Care Time: No Referrals: KRISTEN CARLSON [Primary Care Provider] - Follow up/PCP as directed Additional Instructions: Take your medication as prescribed. Keep your venous Doppler appointment on 08/31/2022. Follow-up with your primary care provider and orthopedic surgeon for further management of your pain issues. Prescriptions: Prednisone 10 mg [Deltasone 10 mg] 10 mg PO TID #12 tablet
[2022-08-26] MEDS ORDERED: PERCOCET TABLET 5/325MG PO STA ×2 (22:32→22:44)
[2022-08-26] MEDS ORDERED: DELTASONE 20 MG PO ONE (22:32)
[2022-08-26] MEDS ORDERED: PERCOCET TABLET 5/325MG ONE ×2 (22:37→22:48)
[2022-08-26] MEDS ORDERED: DELTASONE 20 MG ONE (22:37)
[2022-08-26 23:38] VITALS: BP 143/80; PULSE 78; O2SAT 97
== END 2022-08-26 23:45 | disposition home or self-care (01) ==
LOC: ED 21:50
DX: G89.29 Other chronic pain (principal); M25.551 Pain in right hip; M25.552 Pain in left hip; M25.561 Pain in right knee; M25.562 Pain in left knee; I10 Essential (primary) hypertension; Z79.899 Other long term (current) drug therapy; Z72.0 Tobacco use; Z79.52 Long term (current) use of systemic steroids
CPT/HCPCS: 36415; 85379; 99283; A9270-GY

== ENCOUNTER 2024-04-07 12:41 | Emergency (ER) | payer OTHER ==
[2024-04-07 13:01] VITALS: TEMP 98
--- NOTE | 2024-04-07 13:16 | ERPHSYRPT ---
- History of Present Illness Time Seen by Provider: 04/07/24 12:44 Source: patient Exam Limitations: no limitations Patient Subjective Stated Complaint: hypertension since Triage Nursing Assessment: Pt brought self to the ER, hypertensive, denies pain, states that she had this problem a couple of years ago around the same time and it went away, pt does eat a lot of salt and smokes, pulses normal, skin n/w/d, does c/o of getting out of breath while working outside this weekend, no difficulty breathing at this time, doesn't appear to be in any distress Physician History: Patient sent from urgent care for high blood pressure. Patient says that she is stressed out because of her daughter. Patient has a history of methamphetamine use but denies any use recently. Patient has a history of high blood pressure and she takes lisinopril 5 mg every day. Patient thinks that this is her allergy acting up. She took Claritin also. Has mild head and sinus congestion and discomfort. Mild sore throat. No chest pain or shortness of breath. No nausea vomiting diarrhea. No loss of consciousness. Patient is a smoker. Patient drove self to the ER Timing/Duration: today Severity: moderate Modifying Factors: Improves With: other (stress) Associated Symptoms: headaches, other (Sinus congestion), No shortness of breath, No chest pain Allergies/Adverse Reactions: No Known Drug Allergies Allergy (Verified 04/07/24 13:00) Home Medications: lisinopriL [Zestril] 5 mg PO BID 04/22/19 [History] Omeprazole Magnesium [Prilosec Otc] 20 mg PO DAILY 02/21/23 [History] Hx Tetanus, Diphtheria Vaccination/Date Given: Yes Hx Influenza Vaccination/Date Given: Yes Hx Pneumococcal Vaccination/Date Given: No Travel Risk - International Travel Have you traveled outside of the country in past 3 weeks: No - Emerging Infectious Disease Are you exhibiting symptoms associated with any current EIDs: No - Review of Systems Constitutional: No Fever, No Chills Eyes: No Symptoms Ears, Nose, & Throat: No Symptoms Respiratory: No Cough, No Dyspnea Cardiac: No Chest Pain, No Edema, No Syncope Abdominal/Gastrointestinal: No Abdominal Pain, No Nausea, No Vomiting, No Diarrhea Genitourinary Symptoms: No Dysuria Musculoskeletal: No Back Pain, No Neck Pain Skin: No Rash Neurological: Headache, No Dizziness, No Focal Weakness, No Sensory Changes Psychological: No Symptoms Endocrine: No Symptoms All Other Systems: Reviewed and Negative - Past Medical History Pertinent Past Medical History: Yes Neurological History: No Pertinent History ENT History: No Pertinent History Cardiac History: Hypertension Respiratory History: No Pertinent History Endocrine Medical History: No Pertinent History Musculoskeletal History: Other GI Medical History: No Pertinent History History: No Pertinent History Psycho-Social History: Attention Deficit Disorder, Depression Female Reproductive Disorders: No Pertinent History Other Medical History: , HYSTERECTOMY, TUMMY TUCK - Past Surgical History Past Surgical History: Yes Neuro Surgical History: No Pertinent History Cardiac: No Pertinent History Respiratory: No Pertinent History Gastrointestinal: No Pertinent History Genitourinary: No Pertinent History Musculoskeletal: No Pertinent History Female Surgical History: Hysterectomy, Section Other Surgical History: Tummy Tuck - Female History Hx Last Menstrual Period: hysterectomy Hx Now: No - Social History Smoking Status: Current every day smoker How long have you smoked: 25yrs Exposure to second hand smoke: Yes Drug Use: none Patient Lives Alone: Yes - Social Determinants of Health Will the patient participate in the screening: Yes Do you worry about a steady place to live?: No Do you have any problems with any of the following?: No known problems In the past 12 months,have you had to go without utilities?: No Transportation Issues: No Has anyone in your support network made you feel unsafe?: No Have you or anyone in your house had to go without enough: No - Nursing Vital Signs Nursing Vital Signs: Initial Vital Signs Temperature 98.0 F 04/07/24 12:52 Pulse Rate 86 04/07/24 12:52 Respiratory Rate 26 H 04/07/24 12:52 Blood Pressure 182/105 04/07/24 12:52 O2 Sat by Pulse Oximetry 99 04/07/24 12:52 Pain Scale Pain Intensity 0 - Physical Exam General Appearance: no apparent distress, alert Eye Exam: PERRL/EOMI, eyes nml inspection Ears, Nose, Throat Exam: normal ENT inspection, TMs normal, pharynx normal, moist mucous membranes Neck Exam: normal inspection, non-tender, supple, full range of motion Respiratory Exam: normal breath sounds, lungs clear, No respiratory distress Cardiovascular Exam: regular rate/rhythm, normal heart sounds, normal peripheral pulses Gastrointestinal/Abdomen Exam: soft, normal bowel sounds, No tenderness, No mass Back Exam: normal inspection, normal range of motion, No CVA tenderness, No vertebral tenderness Extremity Exam: normal inspection, normal range of motion, pelvis stable Neurologic Exam: alert, oriented x 3, cooperative, normal mood/affect, nml cerebellar function, nml station & gait, sensation nml, No motor deficits Skin Exam: normal color, warm, dry, No rash Lymphatic Exam: No adenopathy SpO2 Interpretation: normal SpO2: 99 O2 Delivery: Room Air - Course Nursing assessment & vital signs reviewed: Yes Ordered Tests: Active Orders 24 hr Category Date Time Status UA W/RFX UR CULTURE Stat Lab 04/07/24 14:33 Ordered Medication Summary Discontinued Medications Generic Name Dose Route Start Last Admin Trade Name Freq PRN Reason Stop Dose Admin Amlodipine Besylate 10 mg 04/07/24 14:16 04/07/24 14:19 Amlodipine Besylate 5 Mg Tablet PO 04/07/24 14:17 10 mg STAT ONE Administration Amlodipine Besylate Confirm 04/07/24 14:18 Amlodipine Besylate 5 Mg Tablet Administered 04/07/24 14:19 Dose 10 mg .ROUTE .STK-MED ONE Buspirone HCl 10 mg 04/07/24 13:30 04/07/24 13:32 Buspirone Hcl 5 Mg Tablet PO 04/07/24 13:31 10 mg ONCE ONE Administration Clonidine 0.1 mg 04/07/24 13:22 04/07/24 13:27 Clonidine Hcl 0.1 Mg Tablet PO 04/07/24 13:23 0.1 mg STAT ONE Administration Clonidine Confirm 04/07/24 13:26 Clonidine Hcl 0.1 Mg Tablet Administered 04/07/24 13:27 Dose 0.1 mg .ROUTE .STK-MED ONE Hydralazine HCl 25 mg 04/07/24 14:17 04/07/24 14:30 Hydralazine Hcl 25 Mg Tablet PO 04/07/24 14:18 25 mg ONCE ONE Administration - Progress Progress: improved Progress Note: 04/07/24 13:15 116 04/07/24 13:26 Patient has asymptomatic elevation of the blood pressure. No neurodeficits. No cardiac symptoms. I am giving patient clonidine here along with BuSpar. Patient has a precipitating stress for the high blood pressure. I will prescribe patient BuSpar to go home with. I advised patient to follow-up with PCP for ongoing blood pressure management 04/07/24 15:02 Patient is asymptomatic. She states that she wants to go home now because she has to take a lot of stop. Patient says that she is stressed out because she has to take care of her stepdad and mother also. She argues with her sister all the time and she is stressed out about her daughter. I will prescribe BuSpar for her anxiety and stress. Advised patient to see PCP for ongoing blood pressure management. No clinical evidence of endorgan damage secondary to blood pressure so I will discharge the patient home to see PCP for outpatient blood pressure management. Counseled pt/family regarding: diagnosis, need for follow-up, smoking cessation Medical Desision Making - Risk of complications Low Risk: Low risk of morbidity from additional dx testing or treatment - Departure Departure Disposition: Home Clinical Impression: Hypertension Qualifiers: Hypertension type: primary hypertension Qualified Code(s): I10 - Essential (primary) hypertension Condition: Stable Critical Care Time: No Referrals: KRISTEN CARLSON [Primary Care Provider] - Follow up/PCP as directed Additional Instructions: Stop smoking, low-sodium diet. Take medicine as prescribed. See PCP for ongoing blood pressure management Prescriptions: Buspirone HCl 5 mg [Buspar 5 mg] 5 mg PO BID 5 Days #10 tablet
[2024-04-07] MEDS ORDERED: CLONIDINE 0.1 MG TABLET ONE (13:26)
[2024-04-07] MEDS: CLONIDINE 0.1 MG TABLET PO ONE (13:27)
[2024-04-07] MEDS: BUSPAR 5 MG PO ONE (13:32)
[2024-04-07] MEDS ORDERED: NORVASC 5 MG ONE (14:18)
[2024-04-07] MEDS: NORVASC 5 MG PO ONE (14:19)
[2024-04-07] MEDS: Apresoline 25 MG TABLET PO ONE (14:30)
[2024-04-07 14:46] VITALS: PULSE 80; RESP 12
[2024-04-07 15:02] VITALS: BP 178/103
[2024-04-07 15:05] VITALS: O2SAT 99
[2024-04-07 15:47] LABS: Appearance Clear (Clear); Bacteria None Seen /HPF (None Seen); Bilirubin Negative (Negative); Blood Negative (Negative); Epithelial Cells Rare /HPF (None Seen); Glucose, Urine Negative (Negative); Hyaline Casts NONE SEEN /LPF (0-2); Ketones Negative (Negative); Leukocyte Esterase Negative (Negative); Nitrite Negative (Negative); Ph 6.5 (4.6-8.0); Protein,Urine Dip Negative (Negative); RBC 0-2 /HPF (0-5)
[2024-04-07 16:04] LABS: Barbiturate,Urine NEGATIVE (NEGATIVE); Benzodiazepine,Urine NEGATIVE (NEGATIVE); Cocaine,Urine NEGATIVE (NEGATIVE); Methadone,Urine NEGATIVE (NEGATIVE); Opiate,Urine NEGATIVE (NEGATIVE); PCP,Urine NEGATIVE (NEGATIVE); THC,Urine NEGATIVE (NEGATIVE)
[2024-04-07 16:30] LABS: Amphetamine,Urine POSITIVE (NEGATIVE)
== END 2024-04-07 15:09 | disposition home or self-care (01) ==
LOC: ED 12:41
DX: I10 Essential (primary) hypertension (principal); R51.9 Headache, unspecified; R09.81 Nasal congestion; Z79.899 Other long term (current) drug therapy; Z72.0 Tobacco use; Z63.6 Dependent relative needing care at home; Z63.8 Other specified problems related to primary support group
CPT/HCPCS: 80307; 81001; 99283; A9270-GY